=== PATIENT | female | born 1950 | race Caucasian/White ===

== ENCOUNTER 2022-02-01 12:00 | Day surgery (SDC) | payer MEDICARE, SELFPAY ==
[2022-02-01] MEDS: Tropicam./Phenyleph. (1/2.5%) 5 ML BTL OS ×3 (12:35→12:47)
--- NOTE | 2022-02-01 12:35 | W.ANESPRE ---
General Info Date of Service Date Performed: 02/01/22 Height: 5 ft 3 in Weight: 165.561 kg Body Mass Index (BMI): 64.6 Surgical Procedure: Operation Date: 02/01/22 15:40 Proposed Procedure Side Surgeon p Cataract Extraction with IOL Implant w/Glaucoma Stent & Goniotomy Left Chalo Rankin MD Meds Allergies and Home Medications Allergies Allergy/AdvReac Type Severity Reaction Status Date / Time adhesive Allergy Severe Skin Rash Unverified 02/01/22 12:27 cefotaxime [From Claforan] Allergy Severe Tongue Unverified 02/01/22 12:33 swelling penicillin G Allergy Severe tongue Unverified 02/01/22 12:33 [From Bicillin L-A] swelling Home Medication Medication Instructions Recorded ascorbic acid (vitamin C) 500 mg 500 mg PO DAILY 01/28/22 tablet (Vitamin C) cyanocobalamin (vitamin B-12) 1,000 mcg PO DAILY 01/28/22 1,000 mcg tablet cyclobenzaprine 10 mg tablet 10 mg PO TID PRN 01/28/22 duloxetine 60 mg capsule,delayed 60 mg PO DAILY 01/28/22 release gabapentin 600 mg tablet 600 mg PO TID 01/28/22 ibuprofen 600 mg tablet 600 mg PO BID PRN 01/28/22 lisinopril 10 mg tablet 10 mg PO DAILY 01/28/22 oxybutynin chloride 15 mg 15 mg PO DAILY 01/28/22 tablet,extended release 24 hr spironolactone 25 mg tablet 25 mg PO DAILY 01/28/22 latanoprost 0.005 % eye drops 1 drp ophthalmic (eye) HS 01/29/22 Current Visit Medications: Current Medications Generic Name Dose Route Start Last Admin Trade Name Freq PRN Reason Stop Dose Admin Acetaminophen 1,000 mg 02/01/22 06:00 Acetaminophen 500 Mg Tab PO Q4H PRN PRN Miscellaneous Medication 0 ml 02/01/22 06:00 Prednisolone 1%, Moxifloxacin 0.5%, Nepafenac 0.1% 5ml Btl OS DIRECTED [facility] Miscellaneous Medication 0 ml 02/01/22 06:00 Tropicam./Phenyleph. (1/2.5%) 5 Ml Btl OS DIRECTED TABBY Tetracaine HCl 0 ml 02/01/22 06:00 Tetracaine 0.5% 4 Ml Btl OS DIRECTED [facility] PFS Active Problems Active Problems: Problem Status Onset Code Primary open angle glaucoma (POAG) of left eye, mild stage H40.1121 Posterior subcapsular age-related cataract of left eye H25.042 Nuclear sclerotic cataract of left eye H25.12 Cortical cataract of left eye H26.9 Medical History Medical History Age-related osteoporosis without current pathological fracture Central stenosis of spinal canal Chronic diarrhea CKD (chronic kidney disease), stage III pt. denies Essential (primary) hypertension Exercise-induced asthma pt. denies this Fibromyalgia HLD (hyperlipidemia) Hx of menorrhagia due to fibroids, treated with lupron depot, then myomectomy Hyperparathyroidism Hyperparathyroidism due to vitamin D deficiency Kidney stone pr. denies Low back pain Lyme disease recurrent Lymphedema MDD (major depressive disorder), single episode Metatarsalgia, right foot Morbid (severe) obesity due to excess calories Non-pressure chronic ulcer of buttock limited to breakdown of skin pt. denies this Normal esophagogastroduodenoscopy (EGD) Osteoarthritis Other chronic pain Other insomnia not due to a substance or known physiological condition Spinal stenosis, lumbar region without neurogenic claudication Unilateral primary osteoarthritis, right hip Urge incontinence Vitamin B12 deficiency pt. denies Medical History Comments:: Pt. states her mother would be very sick coming out of anesthesia but the patietn states she has not Surgical History Surgical History H/O arthroplasty second left toe H/O arthroscopy bilateral History of tonsillectomy and adenoidectomy states tonsills only removed History of total bilateral knee replacement Hx of colonoscopy Status post embolization of uterine artery Status post hysteroscopic myomectomy Tobacco Smoking/Tobacco Use Status: Never Alcohol Alcohol Intake: never Substance Use Substance use: Never Substance use type: does not use Vital Signs and Lab Results Lab Results Blood Type / Crossmatch: No Data to Display Complete Blood Count: No Data to Display Complete Metabolic Panel: No Data to Display Liver Function Panel: No Data to Display Coagulation Panel: No Data to Display Cardiac Panel: No Data to Display Arterial Blood Gas: No Data to Display Venous Blood Gas: No Data to Display Pancreas Panel: No Data to Display Thyroid Panel: No Data to Display Infectious Disease: No Data to Display Blood Cultures: No Data to Display Toxicology Panel: No Data to Display Anesthesia Assessment and Plan Anesthesia History Personal History: No History of Anesthesia Complications Family History: Other Exercise Tolerance Exercise Tolerance: Metabolic Equivalents>4 Pertinent Negatives Pertinent Negatives: No Symptoms of GERD Cardiac & Pulmonary Exam Cardiac Exam: Normal S1/S2 Heart Sounds Pulmonary Exam: Clear Bilateral Breath Sounds Implantable Cardiac Device Does patient have a Pacemaker or an ICD?: No Airway Exam Known Difficult Airway: No Mallampati Class: 4 Mouth Opening: Narrow (< 3cm) Thyromental Distance: Greater than 3 cm Neck Range of Motion: Full ROM Neck Circumference: Normal Teeth Condition: Removable Dentures/Plates Upper ASA Classification ASA Score: ASA 3 Emergency Case?: No NPO Status NPO Status: NPO Clears >2 hours, Solids >8 hours Anesthesia Plan Resuscitation Status: Full Code Anesthesia Technique: MAC Anesthesia Airway Planned: Natural Airway Monitors Used: Standard Monitors
[2022-02-01 12:36] VITALS: BP 145/73; PULSE 91; RESP 20; TEMP 36.7; O2SAT 96
[2022-02-01 12:40] VITALS: BMI 64.6
[2022-02-01] MEDS: Tetracaine 0.5% 4 ML BTL OS (13:09)
[2022-02-01] MEDS: Triamcinolone 40 MG/ML VIAL (13:11)
[2022-02-01] MEDS: Balanced Salt Soln.-PLUS 500 ML BAG (13:11)
[2022-02-01] MEDS: Duovisc Viscoelastic System EACH 1 EACH (13:12)
[2022-02-01] MEDS: Povidone-Iodine Ophth 30 ML BTL (13:13)
[2022-02-01] MEDS: Lidocaine 2% Jelly 6 ML SYR (13:13)
[2022-02-01 13:44] VITALS: BP 105/81; PULSE 84; RESP 16; TEMP 36.7; O2SAT 100
--- NOTE | 2022-02-01 13:48 | W.ANESPOSTOP ---
Postoperative Evaluation Date, Time and Location Date Performed: 02/01/22 Time Performed: 13:48 Patient Location: Day Surgery Unit Vital Signs Most Recent Imported Vital Signs: Most Recent Vital Signs Temp Pulse Resp BP Pulse Ox 36.7 C 91 H 20 145/73 H 96 02/01/22 12:36 02/01/22 12:36 02/01/22 12:36 02/01/22 12:36 02/01/22 12:36 Most Recent Manually Entered Vital Signs: Adult Blood Pressure: 105/81 Heart Rate: 86 Respirations: 12 Oxygen Saturation (%): 98 Temperature (C): 36.3 C Pain Score (0-10 Scale): 0 Pain Score Most Recent Pain Score: Most Recent Pain Score Pain Level 6 02/01/22 12:36 Assessment Mental Status: Awake (Alert & Oriented to Patient Baseline) Airway and Respiratory Function: Patent airway with normal (patient baseline) respiratory exam Cardiovascular Function: Hemodynamically Stable Hydration Status: Adequately Hydrated Nausea & Vomiting: No Nausea or Vomiting Pain: Pt. Denies Any Pain Peripheral Nerve Block: Patient did not receive a nerve block
[2022-02-01 13:49] VITALS: BP 105/81; PULSE 86; RESP 12; TEMPC 36.3; O2SAT 98
--- NOTE | 2022-02-01 13:49 | W.PM.DSUDISC ---
Discharge Plan Disposition Patient Disposition: HOME Condition: Good Discharge Details Attending Provider: Chalo Rankin Primary Care Provider: Theo Morley Home Meds and New Rx's Prescriptions: No Action cyclobenzaprine 10 mg Tablet 10 mg PO TID PRN oxybutynin chloride 15 mg Tablet Extended Release 24hr 15 mg PO DAILY gabapentin 600 mg Tablet 600 mg PO TID cyanocobalamin (vitamin B-12) 1,000 mcg Tablet 1,000 mcg PO DAILY spironolactone 25 mg Tablet 25 mg PO DAILY ascorbic acid (vitamin C) [Vitamin C] 500 mg Tablet 500 mg PO DAILY ibuprofen 600 mg Tablet 600 mg PO BID PRN duloxetine 60 mg Capsule,Delayed Release(Dr/Ec) 60 mg PO DAILY lisinopril 10 mg Tablet 10 mg PO DAILY latanoprost 0.005 % Drops 1 drp ophthalmic (eye) HS Discharge Instructions Stand Alone Forms: Post-op Topical Cataract, Press Ganey (DSU) Discharge Orders Discharge Orders: Discharge Order (Routine); Ordered 02/01/22 Ordered By: Chalo Rankin DS: Diagnosis Discharge Diagnosis (1) Posterior subcapsular age-related cataract of left eye: Status: Resolved (2) Nuclear sclerotic cataract of left eye: Status: Resolved (3) Cortical cataract of left eye: Status: Resolved
--- NOTE | 2022-02-01 13:50 | ROE_ITS ---
Date of service: 02/01/22 Time of Service: 13:50 Operative Note Operative Note DATE OF PROCEDURE: 02/01/22 PRE-OP DIAGNOSIS: Nuclear/cortical/posterior subcapsular cataract, left eye PROCEDURE: 1. Cataract extraction using phacoemulsification with intraocular lens implant, left eye SURGEON: Chalo Rankin ANESTHESIA TYPE: Local By Surgeon and MAC Refer to Anesthesia Record ESTIMATED BLOOD LOSS: 0 PATHOLOGY: none sent COMPLICATIONS: None Patient was transported to: same day Patient's condition: stable Implants: 1. [employer] / [employer] Tecnis [id number] intraocular lens Indications: 1. Progressive decreased vision due to cataract, left eye Procedure Description: CATARACT SURGERY OPERATIVE REPORT PREOPERATIVE DIAGNOSIS: Nuclear/cortical/posterior subcapsular cataract, left eye POSTOPERATIVE DIAGNOSIS: Same OPERATION: 1. Cataract extraction using phacoemulsification with posterior chamber intraocular lens implant, left eye. IOL: IOL Mailing Machine Assistant/Model: [employer] / KRISTOFER Tecnis [id number] IOL Power: + 16.5 diopters IOL Serial Number: [id number] Optic Diameter: 6.0mm Haptic/Overall Diameter: 13.0mm PHACO INFO: Ignacio Directrurion Vision System with OZil and Active Fluidics Cumulative Dispersed Energy (CDE): 10.07 seconds SURGEON: Chalo Rankin MD, WILLIAM ANESTHESIA: Monitored Anesthesia Care (MAC), with local sub-tenon's anesthetic infiltration COMPLICATIONS: None SPECIMENS: None INDICATIONS FOR PROCEDURE: The patient is a 72-year-old lady with history of diminished visual acuity in her left eye secondary to the development of nuclear/cortical/posterior subcapsular cataract. The option of cataract surgery was offered to the patient and she wished to proceed. She has a history of mild stage primary open-angle glaucoma of the left eye, and glaucoma stents are planned at the time of cataract surgery. PROCEDURE: The correct surgical eye was identified and marked as the left eye and the pupil was dilated in the preoperative area using mydriatics and cycloplegics. The dilated pupil size was 6.0 mm. The patient was brought to the operating room where cardiopulmonary monitoring was instituted and surgical time-out was performed, confirming the correct operative eye and IOL power. Topical anesthesia was administered and ophthalmic povidone-iodine 5% was instilled into the conjunctival fornices. Lidocaine gel was applied to the cornea and the tristan-ocular area was prepped with Betadine 10% solution and draped in the usual sterile fashion for intraocular surgery, including an aperture drape. A Tegaderm transparent film dressing was cut in half and used to cover the lashes and lid margins. Care was taken to sequester the lashes and lid margins under the Tegaderm dressing. A lid speculum was placed between the lids of the operative eye and the Ignacio Lux[employer] Revalia operating microscope was maneuvered into position. Laurent scissors were then used to make a conjunctival buttonhole approximately 6mm posterior to the limbus in the inferonasal quadrant. Blunt dissection was carried out to expose bare sclera, and a blunt-tipped sub-tenon?s anesthesia cannula was introduced and passed posteriorly along the globe where non-preserved plain lidocaine was injected into posterior sub-Tenon?s space. A sideport knife was used to make a paracentesis port superior/superiortemporally. Intraocular phenylephrine/lidocaine was injected into the anterior chamber. The anterior chamber was then filled with viscoelastic. A 2.4mm keratome knife was used to create a half-thickness groove at the limbus and then to construct a three-plane near-clear corneal tunnel extending 2.0mm into clear cornea in the temporal position. . A flap was raised on the anterior capsule and capsulorhexis forceps were used to complete a continuous curvilinear capsulorhexis of 5.0 mm. Balanced salt solution was then used to perform cortical cleaving hydrodissection and nuclear hydrodelineation until the lens could be freely rotated within the capsular bag. The lens nucleus was then disassembled and removed within the capsular bag and iris plane using phacoemulsification. Residual cortical material was removed using the 45-degree angled silicone I/A tip with 0.3mm port. The posterior capsule was carefully polished to remove as much residual lens epithelial cells as safely possible. The capsular bag was then inflated and the anterior chamber deepened with viscoelastic. The lens implant described above was inserted into the capsular bag using the KRISTOFER Yuhaaviatam Injector. A Kuglen hook was used to dial the IOL into position. The anterior chamber was then slightly over-filled with viscoelastic. The microsope and the patient's head were tilted into the ideal position for viewing of the anterior chamber angle. Viscoelastic was placed on the cornea followed by a surgical gonionlens, and the anterior chamber angle landmarks were identified. The Glaukos iStent inject handpiece was introduced into the anterior chamber and the insertion sleeve was retracted once the injector was distal to the pupillary margin. The view of the trabecular meshwork was suboptimal. There was constant small amplitude eye movement, which made targeting it difficult. For stent was attempted to be implanted into the trabecular meshwork, but was incompletely embedded. Attempts were made at reaching the introducing the stent on the trocar, but were unsuccessful due to eye movement and poor view from angle hemorrhage. Viscoelastic was used to clear hemorrhage from the angle, and the second stent was attempted to be injected, after much adjusting of the patient's head, microscope angle, and gonial lens, but the second stent failed to implant completely as well. An attempt was made to reload the stent on the trocar, but was unsuccessful due to constant eye movement. The decision was made not to continue attempting the stent. Both stents were viewed within the angle, and removed using the irrigation/aspiration handpiece, ensuring they were not left in the anterior chamber. The microscope and the patients head were returned to the normal coaxial position. Viscoelatic was then removed from the anterior chamber using the I/A handpiece. The lens implant was noted to center nicely within the capsular bag. The incisions were stromally hydrated, and the anterior chamber was reformed using BSS. Then 0.5cc of moxifloxacin 1.0mg/ml were injected into the capsular bag and anterior chamber. The incisions were checked with a Weck spear and found to be secure. Several drops of ophthalmic povidone-iodine 5% were then applied to the eye followed by two drops of Imprimis combination prednisolone/moxifloxacin/nepafenac solution. The drapes were removed and a clear plastic protective eye shield was placed over the eye. The patient was then returned to Same Day Surgery in stable condition.
== END 2022-02-01 14:14 | disposition home or self-care (01) ==
PROVIDERS: PCP Family Medicine; Visit Provider Ophthalmology
PROC: (CPT 66984; principal; 2022-02-01 15:30)
DX: H25.042 Posterior subcapsular polar age-related cataract, left eye (principal); H40.1121 Primary open-angle glaucoma, left eye, mild stage; N18.30 Chronic kidney disease, stage 3 unspecified; E78.5 Hyperlipidemia, unspecified; E66.01 Morbid (severe) obesity due to excess calories; Z68.44 Body mass index [BMI] 60.0-69.9, adult
CPT/HCPCS: 66984; V2632

== ENCOUNTER 2023-05-25 12:18 | Emergency (ER) | payer MEDICARE, SELFPAY ==
[2023-05-25 12:21] VITALS: BP 162/94; PULSE 83; RESP 22; TEMP 36.9; O2SAT 98
--- OUTSIDE RECORDS SUMMARY | 2023-05-25 12:26 | XMS_ITS | Continuity of Care Document ---
Author Name Unknown Organization [facility] Address [address] [place] [address] Care Team Providers Care Bag Printer Name Role Phone Theo Kat DO Primary Care Physician Encounter [id number] [id number] Date(s): 09/21/22 - 09/21/[address] [id number] Encounter Diagnosis OAB (overactive bladder)(Discharge Diagnosis) - 09/21/22 Discharge Disposition: Home or Self Care Attending Physician: Margot Bhatti MD Admitting Physician: Margot Bhatti MD Allergies, Adverse Reactions, Alerts Substance Reaction Severity Status Adhesive Bandage Rash Moderate Active Claforan Tongue swelling Severe Active Bicillin L-A Tongue swelling Severe Active Assessment and Plan Future Appointments Immunizations Given and Recorded Vaccine Date Status Refusal Reason SARS-CoV-2 mRNA (tozinameran 12y+) bival 1 08/19/22 Given influenza virus vaccine, inactivated 06/03/22 Give n SARS-COV-2 (COVID-19) vaccine, unspecifi 05/20/21 Recorded pneumococcal 23-polyvalent vaccine 03/04/17 Record ed tetanus/diphth/pertuss (Tdap) adult/adol 09/21/07 Recorded tetanus-diphth toxoids (Td) adult/adol 03/06/98 Re corded 1Early/Late Reason: Early/Late Reason: Not Late; previous dose wasn't charted Medications acetaminophen 650 mg oral tablet, extended release 1,300 mg = 2 tab, Oral, BID, PRN as needed for pain, 0 Refill(s) Start Date: 06/03/22 Status: Ordered cyclobenzaprine 10 mg oral tablet 10 mg = 1 tab, Oral, TID, PRN as needed for muscle spasm, # 90 tab, 0 Refill(s) Start Date: 06/01/22 Stop Date: 11/10/22 Status: Ordered DULoxetine 60 mg oral delayed release capsule 60 mg = 1 cap, Oral, BID, do not crush or chew, # 180 cap, 0 Refill(s) Start Date: 06/01/22 Stop Date: 11/11/22 Status: Ordered gabapentin 600 mg oral tablet 600 mg = 1 tab, Oral, TID, # 270 tab, 0 Refill(s) Start Date: 06/01/22 Stop Date: 11/10/22 Status: Ordered losartan 25 mg oral tablet 25 mg = 1 tab, Oral, Daily, # 90 tab, 0 Refill(s) Start Date: 06/01/22 Stop Date: 11/11/22 Status: Ordered Lumigan 0.01% ophthalmic solution 1 drops, Eye-Left, every evening, # 7.5 mL, 0 Refill(s) Start Date: 06/01/22 Stop Date: 10/11/22 Status: Ordered oxybutynin 15 mg/24 hr oral tablet, extended release 1 tab, Oral, Daily, # 90 tab, 3 Refill(s), Pharmacy: [email or web address] #[id number] Start Date: 08/27/22 Status: Ordered spironolactone 25 mg oral tablet 25 mg = 1 tab, Oral, Daily, # 90 tab, 0 Refill(s) Start Date: 06/01/22 Stop Date: 11/10/22 Status: Ordered Vitamin B Complex oral tablet 1 tab, Oral, Daily, # 90 tab, 0 Refill(s) Start Date: 08/19/22 Stop Date: 11/17/22 Status: Ordered Vitamin C 500 mg oral tablet 500 mg = 1 tab, Oral, Daily, # 90 tab, 0 Refill(s) Start Date: 06/01/22 Stop Date: 11/11/22 Status: Ordered Problem List Condition Confirmation Course Effective Dates Status Health Status Informant Bilateral sacroiliitis Confirmed Active Diastolic heart failure Confirmed Active Fibromyalgia Confirmed Active Hearing loss Confirmed Active Hyperparathyroidism Confirmed Active Hypertension Confirmed Active Lumbar spondylosis Confirmed Active Lymphedema of both lower extremities Confirmed Active Mixed hyperlipidemia Confirmed Active Obesity Confirmed Active Obstructive sleep apnea Confirmed Active OAB (overactive bladder) Confirmed Active Reactive depression Confirmed Active Procedures Procedure Date Related Diagnosis Body Site Status Replacement of bilateral knee joints 2006 Completed Colonoscopy Completed Tonsillectomy and adenoidectomy Completed Results Orders for Microbiology Reports Name Date Urine Culture 09/21/22 Microbiology Reports TEST:Urine Culture STATUS:Order in Progress BODY SITE: SOURCE:Urine, Clean Catch COLLECTED DATE/TIME:09/21/22 8:49 AM PRELIMINARY REPORT >100,000 cfu/ml Gram Negative Bacilli Presumptive E. coli Identification and susceptibility to follow. Social History Social History Type Response Tobacco Never tobacco user T obacco Use:. Sex Patient Care team information Personnel Name: Theo Kat DO Address: Address: [address] [place] [id number]
--- OUTSIDE RECORDS SUMMARY | 2023-05-25 12:26 | XMS_ITS | Continuity of Care Document ---
Author Name Unknown Organization [facility] Address [address] [place] [address] Care Team Providers Care Paper Counter Name Role Phone Theo Kat DO Primary Care Physician Encounter [facility] NBR [id number] Date(s): 12/13/22 - 12/13/22 [facility] [address] [place], [place] [address] Discharge Disposition: Home Allergies, Adverse Reactions, Alerts Substance Reaction Severity Status Adhesive Bandage Rash Moderate Active Claforan Tongue swelling Severe Active Bicillin L-A Tongue swelling Severe Active Assessment and Plan Future Appointments Future Scheduled Tests Laboratory* CBC w/ Diff 12/03/22 * Ferritin 12/03/22 * Urine Culture 12/13/22 * Urinalysis Dipstick Only 12/13/22 Immunizations Given and Recorded Vaccine Date Status Refusal Reason SARS-CoV-2 mRNA (tofloridanamkellyn 12y+) bival 1 08/19/22 Given influenza virus vaccine, inactivated 06/03/22 Give n influenza, unspecified formulation 2 06/04/21 Aden rded influenza, unspecified formulation 3 06/12/18 Aden rded influenza, unspecified formulation 4 05/18/16 Aden rded influenza, unspecified formulation 5 05/15/14 Aden rded influenza, unspecified formulation 6 05/08/13 Aden rded influenza, unspecified formulation 7 05/20/12 Aden rded influenza, unspecified formulation 8 06/02/11 Aden rded influenza, unspecified formulation 9 05/31/09 Aden rded influenza, unspecified formulation 10 06/22/08 Rec orded SARS-CoV-2 (COVID-19) mRNA BNT-162b2 vax 11 05/20/21 Recorded SARS-COV-2 (COVID-19) vaccine, unspecifi 05/20/21 Recorded pneumococcal 23-polyvalent vaccine 03/04/17 Record ed pneumococcal 23-polyvalent vaccine 12 05/22/98 Rec orded tetanus/diphth/pertuss (Tdap) adult/adol 09/21/07 Recorded tetanus-diphth toxoids (Td) adult/adol 03/06/98 Re corded 1Early/Late Reason: Early/Late Reason: Not Late; previous dose wasn't charted 2Result Comment: Flu (adult) 3Result Comment: MARGE - Flu VACC 6 MONTHS > 4Result Comment: MARGE - Flu VACC 6 MONTHS > 5Result Comment: MARGE - Flu VACC 6 MONTHS > 6Result Comment: MARGE - Flu VACC 6 MONTHS > 7Result Comment: MARGE - Flu VACC 6 MONTHS > 8Result Comment: MARGE - Flu VACC 6 MONTHS > 9Result Comment: MARGE - Flu VACC 6 MONTHS > 10Result Comment: MARGE - Flu VACC 6 MONTHS > 11Result Comment: COVID-19 ([employer]) mRNA,LNP-S,PF 30 mcg/0.3mL dose 12Result Comment: Pneumovax [id number] Medications acetaminophen 650 mg oral tablet, extended release 1,300 mg = 2 tab, Oral, BID, PRN as needed for pain, 0 Refill(s) Start Date: 06/03/22 Status: Ordered cyclobenzaprine 10 mg oral tablet 10 mg = 1 tab, Oral, TID, PRN as needed for muscle spasm, # 90 tab, 0 Refill(s) Start Date: 06/01/22 Stop Date: 11/10/22 Status: Ordered diclofenac 1% topical gel See Instructions, small amount to left elbow Topical twice daily as needed, # 100 g, 0 Refill(s), Pharmacy: [facility] #[id number] Start Date: 12/09/22 Status: Ordered DULoxetine 60 mg oral delayed release capsule 60 mg = 1 cap, Oral, BID, do not crush or chew, # 180 cap, 0 Refill(s) Start Date: 06/01/22 Stop Date: 11/11/22 Status: Ordered furosemide 20 mg oral tablet 10 mg = 0.5 tab, Oral, Daily, prn SOB,, # 5 tab, 0 Refill(s), Pharmacy: [facility] Start Date: 12/03/22 Status: Ordered furosemide 20 mg oral tablet 10 mg = 0.5 tab, Oral, Daily, take for SOB as needed or weight increase more than 5 pounds in 1 days, # 45 tab, 0 Refill(s), Pharmacy: [facility] ([facility] ) Start Date: 12/03/22 Status: Ordered gabapentin 600 mg oral tablet 600 mg = 1 tab, Oral, TID, # 270 tab, 0 Refill(s) Start Date: 06/01/22 Stop Date: 11/10/22 Status: Ordered losartan 25 mg oral tablet See Instructions, TAKE 1 TABLET BY MOUTH ONCE DAILY, # 90 tab, 3 Refill(s), Pharmacy: [facility] ([facility]) Start Date: 12/13/22 Status: Ordered Lumigan 0.01% ophthalmic solution 1 drops, Eye-Left, every evening, # 7.5 mL, 0 Refill(s) Start Date: 06/01/22 Stop Date: 10/11/22 Status: Ordered nystatin 100,000 units/g topical powder 1 piero, Topical, BID, # 60 g, 4 Refill(s), Pharmacy: [facility] ([facility] ) Start Date: 11/18/22 Stop Date: 02/11/24 Status: Ordered oxybutynin 15 mg/24 hr oral tablet, extended release 1 tab, Oral, Daily, # 90 tab, 3 Refill(s), [id number] Start Date: 08/27/22 Status: Ordered spironolactone 25 mg oral tablet 25 mg = 1 tab, Oral, Daily, # 90 tab, 0 Refill(s) Start Date: 06/01/22 Stop Date: 11/10/22 Status: Ordered traMADol 50 mg oral tablet See Instructions, take 1 to 3 tabs by mouth daily if needed for severe pain, # 90 tab, 0 Refill(s) Start Date: 12/03/22 Status: Ordered Vitamin B Complex oral tablet 1 tab, Oral, Daily, # 90 tab, 0 Refill(s) Start Date: 08/19/22 Stop Date: 11/17/22 Status: Ordered Vitamin C 500 mg oral tablet 500 mg = 1 tab, Oral, Daily, # 90 tab, 0 Refill(s) Start Date: 06/01/22 Stop Date: 11/11/22 Status: Ordered Problem List Condition Confirmation Course Effective Dates Status Health Status Informant Age-related osteoporosis 1 Confirmed Active Bilateral sacroiliitis Confirmed Active BMI 40.0-44.9, adult Confirmed Active Chronic diarrhea Confirmed Active Chronic kidney disease stage 3 Confirmed Active Chronic pain Confirmed Active Chronic ulcer of skin 2 Confirmed Active Pre-ulcerative corn or callous Confirmed Active Degenerative disc disease at all levels 3 Confirmed Active Diastolic heart failure Confirmed Active Diverticulitis Confirmed Active Exercise induced asthma Confirmed Active Fibromyalgia Confirmed Active Hammertoe of right foot Confirmed Active Hearing loss Confirmed Active History of recurrent Lyme disease 4 Confirmed Active Hyperlipidemia Confirmed Active Hyperparathyroidism Confirmed Active Hyperparathyroidism due to vitamin D deficiency 5 Confirmed Active Hypertension Confirmed Active Insomnia 6 Confirmed Active Kidney stone Confirmed Active Fissure in skin of foot Confirmed Active Low back pain Confirmed Active Lumbar spondylosis Confirmed Active Lymphedema of both lower extremities Confirmed Active Major depressive disorder, single episode Confirmed Active Menometrorrhagia 7 Confirmed Active Metatarsal bone fracture 8 Confirmed Active Mixed hyperlipidemia Confirmed Active Morbid (severe) obesity due to excess calories Confirmed Active BMI 60.0-69.9, adult Confirmed Active Obesity Confirmed Active Obstructive sleep apnea Confirmed Active OM (onychomycosis) Confirmed Active Osteoarthritis of bilateral knee joints 9 Confirmed Active OAB (overactive bladder) Confirmed Active unilateral primary osteoarthritis, right hip 10 Confirmed Active Reactive depression Confirmed Active Spinal stenosis 11 Confirmed Active spinal stenosis, lumbar region without neurogenic claudication 12 Confirmed Active Ulcer of left lower extremity with fat layer exposed Confirmed Active Urge urinary incontinence Confirmed Active Vitamin B12 deficiency Confirmed Active 1From [facility]: age-related osteoporosis without current pathological fracture 2Previously known as non-pressure chronic ulcer of buttock limited to breakdown of skin From [facility] 3FROM [facility]: degenerative disc disease at all levels 4From [facility]: hx of recurrent lyme disease, dx in 1992 s/p tx w/multiple abx protocis 5Previously known as vitamin d edficiency with secondary hypoparathyroidism in [facility] 6From [facility]: other insomnia not due to a substance or known physiological condition 7FROM [facility]: hx of [id number]-[id number] to fibroids, treated with depot lupron, then Myomectomy 8From [facility]: right foot metarsal fx 10/21 9FROM [facility]: osteoarthritis/DJD both knees, status post bilateral knee replacements in 2006 10From [facility]: unilateral primary osteoarthritis, right hip 11Preiously known as: moderate degenerative central canal stenosis FROM [facility] 12From [facility]: spinal stenosis, lumbar region without neurogenic claudication Procedures Procedure Date Related Diagnosis Body Site Status Colonoscopy 1 06/2017 Completed Procedure on spine 2 06/30/16 Comp leted Arthroplasty of toe 3 04/09/15 Com pleted Endometrial biopsy 4 11/20/07 Comp leted Replacement of bilateral knee joints 5 2006 Completed Endometrial biopsy 6 04/2005 Comp leted Uterine Artery Embolism/ Hysteroscopy 7 2004 Completed HYsteroscopy with partial myomectomy 8 02/2004 Completed EGD - Esophagogastroduodenoscopy 9 06/2000 Completed Arthroscopy 10 1988 Completed Arthroscopy 11 1986 Completed Colonoscopy Completed Dilation and curettage 12 Completed Operative hysteroscopy, uter ine artery embolization 13 Completed Tonsillectomy and adenoidectomy Completed 1FROM [facility]: Colonoscopy, sigmoid diverticulosis (repeat in 10 years) 2FROM [facility]: LES1, L5 to S1, left Dr. Dubois, [facility] 3FROM [facility]: Arthroplasty, second left toe 4FROM [facility]: Endometrial biopsy, benign 5FROM [facility]: Bilateral TKA 6FROM [facility]: Encometrial biopsy, benign 7FROM [facility]: Uterine Artery Embolism/ Hysteroscopy 8FROM [facility]: HYsteroscopy with partial myomectomy 9FROM [facility]: EGD, normal 10FROM [facility]: Arthroscopy (Bilateral) 11FROM [facility]: Arthroscopy (Bilateral) 12FROM [facility]: D+C (numerous) 13FROM [facility]: operative hysteroscopy, uterine artery embolization Social History Social History Type Response Tobacco Never tobacco user T obacco Use:. Sex Patient Care team information Care Team Personnel Name: Theo Kat DO Position: Physician Member Role: Primary Care Physician Address: Address: [address] [place] [id number] Name: Lubna Jordan APRN Position: Physician Member Role: Nurse Practitioner Address: Address: [address] [place] [phone] [place]
--- OUTSIDE RECORDS SUMMARY | 2023-05-25 12:26 | XMS_ITS | Continuity of Care Document ---
Author Name Unknown Organization [facility] Address [address] [place] [address] Care Team Providers Care Switchboard Operator Receptionist Name Role Phone Theo Kat DO Primary Care Physician Encounter [facility] NBR [id number] Date(s): 12/03/22 - 12/03/22 [facility] [address] [place], [place] [address] Encounter Diagnosis BMI 60.0-69.9, adult(Discharge Diagnosis) - 12/03/22 Chronic ulcer of skin(Discharge Diagnosis) - 12/03/22 SOB (shortness of breath)(Discharge Diagnosis) - 12/03/22 Lymphedema of both lower extremities(Discharge Diagnosis) - 12/03/22 Anemia(Discharge Diagnosis) - 12/03/22 Elbow pain, left(Discharge Diagnosis) - 12/03/22 Uses wheelchair(Discharge Diagnosis) - 12/03/22 Sciatica of right side(Discharge Diagnosis) - 12/03/22 Discharge Disposition: Home or Self Care Attending Physician: SHA Chery Allergies, Adverse Reactions, Alerts Substance Reaction Severity Status Adhesive Bandage Rash Moderate Active Claforan Tongue swelling Severe Active Bicillin L-A Tongue swelling Severe Active Assessment and Plan Future Appointments Future Scheduled Tests Laboratory* CBC w/ Diff 12/03/22 * Ferritin 12/03/22 Functional Status 12/03/22 Other exposure to Infectious Disease Non e Immunizations Given and Recorded Vaccine Date Status [...] VACC 6 MONTHS > 11Result Comment: COVID-19 ([employer]) mRNA,LNP-S,PF 30 mcg/0.3mL dose 12Result Comment: Pneumovax [id number] Medications acetaminophen 650 mg oral tablet, extended [...] needed, # 100 g, 0 Refill(s), Pharmacy: [facility] Start Date: 12/03/22 Status: Ordered DULoxetine 60 mg oral delayed release capsule 60 mg = 1 cap, Oral, BID, do not crush or chew, # 180 cap, 0 Refill(s) Start Date: 06/01/22 Stop Date: 11/11/22 Status: Ordered furosemide 20 mg oral tablet 10 mg = 0.5 tab, Oral, Daily, prn SOB,, # 5 tab, 0 Refill(s), Pharmacy: [facility] Start Date: 12/03/22 Status: Ordered furosemide 20 mg oral tablet 10 mg = 0.5 tab, Oral, Daily, take for SOB as needed or weight increase more than 5 pounds in 1 days, # 45 tab, 0 Refill(s), Pharmacy: [facility] ([facility] ) Start Date: 12/03/22 Status: [...] g, 4 Refill(s), Pharmacy: [facility] ([facility] ) Start Date: 11/18/22 Stop Date: 02/11/24 Status: Ordered oxybutynin 15 mg/24 hr oral tablet, extended release 1 tab, Oral, Daily, # 90 tab, 3 Refill(s), Pharmacy: [facility] #[id number] Start Date: 08/27/22 Status: Ordered spironolactone 25 [...] known physiological condition 7FROM [facility]: hx of [id number]-gfs to fibroids, treated with depot lupron, then [...] LES1, L5 to S1, left Dr. Dubois, [facility] 3FROM [facility]: Arthroplasty, second left toe 4FROM [facility]: Endometrial biopsy, benign 5FROM [facility]: Bilateral TKA 6FROM [facility]: Encometrial biopsy, benign 7FROM [facility]: Uterine Artery Embolism/ Hysteroscopy 8FROM [facility]: HYsteroscopy with partial myomectomy 9FROM [facility]: EGD, normal 10FROM [facility]: Arthroscopy (Bilateral) 11FROM [facility]: Arthroscopy (Bilateral) 12FROM [facility]: D+C (numerous) 13FROM [facility]: operative hysteroscopy, uterine artery embolization Vital Signs Most recent to oldest [Reference Range]: 1 Peripheral Pulse Rate [60-100 bpm] 77 bp m (12/03/22 10:55 AM) Blood Pressure [90-140/60-90 mmHg] 134/8 0mmHg (12/03/22 10:55 AM) Weight 168.6 kg (12/03/22 10:55 AM) Weight Measured (lbs) 371.699 lb (12/03/22 10:55 AM) Social History Social History Type Response Tobacco Never tobacco user T obacco Use:. Sex Hospital Discharge Instructions Follow Up Care 11/29/2022 09:59:00 With:SHA Chery Address: [address] [place] [phone] When: only if needed Physician Outpatient Note * SHA Chery: PERFORM Event Display: Office Clinic Note Physician Authored Date: [id number] HERBERTH FLORES :1950 Age:72 years Sex:Female Visit Date:12/03/2022 Primary Care Physician: Theo Kat DO Chief Complaint SOB is bad when patient is doing activity, walking ect. Tennis Elbow? Patient has tubing for compression on legs, feels like turnikit some times. Additional Information Patient has large legs with scaly skin texture on thighs, and 2 wounds on left leonardo. Nothing was sent home for treatment for these wounds. History of Present Illness Patient indicates visit for f/u shortness of breath and ED visit of 11/19/2022. She took Lasix 20 mgx 1 week with benefit and has lost 21 pounds since last PCP visit. ?? Had cataract surgery last week. She is under care of rheumatology Dr Mead for joints and has appointment in early January for Left ??elbow pain. Has had an injection a couple months ago ??but it did not help much. Having sciatic pain since riding in car yesterday. uses topical pain patch prn. No SOB, resting pt with limited ambulation due to body habitus and lymphedema ?? Review of Systems Constitutional:?No??fevers,?No??chills,?No??sweats ?? Respiratory:?No??shortness of breath,?No??cough Cardiovascular:?No??Chest pain,?No??palpitations,?No??syncope ?? José/Lymph:?No??bruising tendency,?No??swollen lymph glands Endocrine:?No??excessive thirst,??No??excessive hunger Musculoskeletal:??Positive for??back pain,??No??neck pain,??Positive for??joint pain,??No??muscle pain,??Positive for??decreased range of motion Integumentary:?No??rash,?No??pruritus,?No??abrasions Neurologic: Alert & oriented X 4 Psychiatric:?No??anxiety,?No??depression Physical Exam Vitals & Measurements HR:??77??(Peripheral)?? BP:??134/80?? SpO2:??99%?? WT:??168.6??kg?? General: Alert and oriented, well nourished,?No??acute distress ?? Lungs:??Clear to auscultation?? Respiration:??Non-Labored Heart:?Normal? rate,?Regular??rhythm,?No??murmur,?No??gallop,?No??edema ?? Musculoskeletal:?Abnormal?? range of motion and strength,?Positive for??tenderness,?Positive for??swelling?? left elbow , hot at joint Skin: Skin is warm, dry and pink,?No??rashes,?No??lesions Neurologic: Awake, alert and oriented X4, CN II-XII intact Psychiatric: Cooperative, appropriate mood and affect Assessment/Plan 1.??BMI 60.0-69.9, adult??Z68.44 continue weight management ?? 2.??Chronic ulcer of skin??L98.499 f/u with vascular ?? 3.??SOB (shortness of breath)??R06.02 resolved, use lasix prn weight increase > 5 pounds in 1 day. Ordered: furosemide 20 mg oral tablet, 10 mg = 0.5 tab, Oral, Daily, prn SOB,, # 5 tab, 0 Refill(s), Pharmacy: [facility] furosemide 20 mg oral tablet, 10 mg = 0.5 tab, Oral, Daily, take for SOB as needed or weight increase more than 5 pounds in 1 days, # 45 tab, 0 Refill(s), Pharmacy: [facility] ([facility] ) ?? 4.??Lymphedema of both lower extremities??I89.0 vascular ?? 5.??Anemia??D64.9 labs pending r/o iron deficiency Ordered: CBC w/ Diff, Blood, Routine, 12/03/22, Once, Lab Collect, Anemia, Order for future visit Ferritin, Blood, Routine, 12/03/22, Once, Lab Collect, Anemia, Order for future visit ?? 6.??Elbow pain, left??M25.522 f/u with skin diver Ordered: XR Elbow Complete 3+ Views Left, 12/03/22 12:15:00 EDT, Routine, Reason: elbow pain heat, TransportMode: Ambulatory, Elbow pain, left, ABN Status: Not Required ?? 7.??Uses wheelchair??Z99.3 ambulate as able for sciatic pain ?? 8.??Sciatica of right side??M54.31 ambulate as able, pain patch prn ? Future Orders CBC w/ Diff, Blood, Routine, 12/03/22, Once, Lab Collect, Anemia, Order for future visit Ferritin, Blood, Routine, 12/03/22, Once, Lab Collect, Anemia, Order for future visit Follow Up Instructions With When Contact Information SHA Chery Only if needed [address] [place] [address] Additional Instructions: Problem List/Past Medical History Ongoing Age-related osteoporosis Bilateral sacroiliitis BMI 40.0-44.9, adult BMI 60.0-69.9, adult Chronic diarrhea Chronic kidney disease stage 3 Chronic pain Chronic ulcer of skin Degenerative disc disease at all levels Diastolic heart failure Diverticulitis Exercise induced asthma Fibromyalgia Fissure in skin of foot Hammertoe of right foot Hearing loss History of recurrent Lyme disease Hyperlipidemia Hyperparathyroidism Hyperparathyroidism due to vitamin D deficiency Hypertension Insomnia Kidney stone Low back pain Lumbar spondylosis Lymphedema of both lower extremities Major depressive disorder, single episode Menometrorrhagia Metatarsal bone fracture Mixed hyperlipidemia Morbid (severe) obesity due to excess calories OAB (overactive bladder) Obesity Obstructive sleep apnea OM (onychomycosis) Osteoarthritis of bilateral knee joints Pre-ulcerative corn or callous Reactive depression Spinal stenosis spinal stenosis, lumbar region without neurogenic claudication Ulcer of left lower extremity with fat layer exposed unilateral primary osteoarthritis, right hip Urge urinary incontinence Vitamin B12 deficiency Historical No qualifying data Procedure/Surgical History ???Colonoscopy (07/2017)???Procedure on spine (07/01/2016)???Arthroplasty of toe (04/10/2015)???Endometrial biopsy (11/21/2007)???Replacement of bilateral knee joints (2006)???Endometrial biopsy (05/2005)???Uterine Artery Embolism/ Hysteroscopy (2004)???HYsteroscopy with partial myomectomy (03/2004)???EGD - Esophagogastroduodenoscopy (07/2000)???Arthroscopy (1989)???Arthroscopy (1987)???Colonoscopy???Dilation and curettage???Operative hysteroscopy, uterine artery embolization???Tonsillectomy and adenoidectomy Medications acetaminophen 650 mg oral tablet, extended release, 1300 mg= 2 tab, Oral, BID, PRN cyclobenzaprine 10 mg oral tablet, 10 mg= 1 tab, Oral, TID, PRN DULoxetine 60 mg oral delayed release capsule, 60 mg= 1 cap, Oral, BID furosemide 20 mg oral tablet, 10 mg= 0.5 tab, Oral, Daily furosemide 20 mg oral tablet, 10 mg= 0.5 tab, Oral, Daily gabapentin 600 mg oral tablet, 600 mg= 1 tab, Oral, TID losartan 25 mg oral tablet, 25 mg= 1 tab, Oral, Daily Lumigan 0.01% ophthalmic solution, 1 drops, Eye-Left, every evening nystatin 100,000 units/g topical powder, 1 piero, Topical, BID, 4 refills oxybutynin 15 mg/24 hr oral tablet, extended release, 1 tab, Oral, Daily spironolactone 25 mg oral tablet, 25 mg= 1 tab, Oral, Daily traMADol 50 mg oral tablet, See Instructions Vitamin B Complex oral tablet, 1 tab, Oral, Daily Vitamin C 500 mg oral tablet, 500 mg= 1 tab, Oral, Daily Allergies Bicillin L-A??(Tongue swelling) Claforan??(Tongue swelling) Adhesive Bandage??(Rash) Social History Alcohol Never Electronic Cigarette/Vaping Electronic Cigarette Use: Never. Substance Use Never Tobacco Never tobacco user Tobacco Use:. Family History Abdominal aortic aneurysm: Mother. Alcohol abuse: Father and Brother. Cancer: Father and Sister. Cancer: Sister. Dementia: Negative: Sister. Heart attack: Mother. Heart disease: Mother. Hypertension: Mother. Lung cancer: Father and Sister. Suicide: Brother. Family Member(s): ?? FATHER, at age: Unknown. Cause of : Family Member(s): ?? MOTHER, at age: Unknown. Cause of : Family Member(s): ?? BROTHER, at age: 30 Years. Cause of : suicide Family Member(s): ?? SISTER, at age: Unknown. Cause of : Immunizations Vaccine Date Status SARS-CoV-2 mRNA (lorena 12y+) bival 08/19/2022 Given Comments : Early/Late Reason: Not Late; previous dose wasn't charted influenza virus vaccine, inactivated 06/03/2022 Given influenza, unspecified formulation 06/04/2021 Recorded Comments : Flu (adult) SARS-CoV-2 (COVID-19) mRNA BNT-162b2 vax 05/20/2021 Recorded Comments : COVID-19 (Pfizer) mRNA,LNP-S,PF 30 mcg/0.3mL dose SARS-COV-2 (COVID-19) vaccine, unspecifi 05/20/2021 Recorded influenza, unspecified formulation 06/12/2018 Recorded Comments : [facility] - Flu VACC 6 MONTHS > pneumococcal 23-polyvalent vaccine 03/04/2017 Recorded influenza, unspecified formulation 05/18/2016 Recorded Comments : MARGE - Flu VACC 6 MONTHS > influenza, unspecified formulation 05/15/2014 Recorded Comments : MARGE - Flu VACC 6 MONTHS > influenza, unspecified formulation 05/08/2013 Recorded Comments : MARGE - Flu VACC 6 MONTHS > influenza, unspecified formulation 05/20/2012 Recorded Comments : MARGE - Flu VACC 6 MONTHS > influenza, unspecified formulation 06/02/2011 Recorded Comments : MARGE - Flu VACC 6 MONTHS > influenza, unspecified formulation 05/31/2009 Recorded Comments : MARGE - Flu VACC 6 MONTHS > influenza, unspecified formulation 06/22/2008 Recorded Comments : MARGE - Flu VACC 6 MONTHS > tetanus/diphth/pertuss (Tdap) adult/adol 09/21/2007 Recorded pneumococcal 23-polyvalent vaccine 05/22/1998 Recorded Comments : Pneumovax [id number] tetanus-diphth toxoids (Td) adult/adol 03/06/1998 Recorded Electronically Signed on 12/03/22 12:28 PM SHA Chery Patient Care team information Care Team Personnel Name: Theo Kat DO Position: Physician Member Role: Primary Care Physician Address: Address: [address] [place] [phone] Name: Lubna Jordan APRN Position: Physician Member Role: Nurse Practitioner Address: Address: [address] [place] [phone]
--- OUTSIDE RECORDS SUMMARY | 2023-05-25 12:26 | XMS_ITS | Continuity of Care Document ---
Author Name Unknown Organization [facility] Ambulatory Clinics Address [address] [place] [address] Encounter [facility] NBR [id number] Date(s): 06/03/22 - 06/03/22 [facility] Ambulatory Clinics [address] [place], [place] [address] Encounter Diagnosis Pre-op exam(Discharge Diagnosis) - 06/03/22 Encounter for immunization(Discharge Diagnosis) - 06/03/22 Stage 3 chronic kidney disease(Discharge Diagnosis) - 06/03/22 Discharge Disposition: Home or Self Care Attending Physician: Brianda Oglesby APRN Allergies, Adverse Reactions, Alerts Substance Reaction Severity Status Adhesive Bandage Unknown Active Claforan Unknown Active Bicillin L-A Unknown Active Assessment and Plan Future Appointments Functional Status 06/03/22 Living Environment Home Environment No qualifying data available Lives In Apartment Lives With Alone Living Situation Other: lives in [place] or housing Prior Accessibility Options Bathroom mod ifications Other exposure to Infectious Disease Non e Immunizations Given and Recorded Vaccine Date Status Refusal Reason influenza virus vaccine, inactivated 06/03/22 Give n SARS-COV-2 (COVID-19) vaccine, unspecifi 05/20/21 Recorded Medications acetaminophen 650 mg oral tablet, extended release 1,300 mg = 2 tab, Oral, BID, PRN as needed for pain, 0 Refill(s) Start Date: 06/03/22 Status: Ordered cyanocobalamin 1000 mcg oral tablet 1,000 mcg = 1 tab, Oral, Daily, # 90 tab, 0 Refill(s) Start Date: 06/01/22 Status: Ordered cyclobenzaprine 10 mg oral tablet 10 mg = 1 tab, Oral, TID, PRN as needed for muscle spasm, # 30 tab, 0 Refill(s) Start Date: 06/01/22 Status: Ordered DULoxetine 60 mg oral delayed release capsule 60 mg = 1 cap, Oral, Daily, do not crush or chew, # 90 cap, 0 Refill(s) Start Date: 06/01/22 Status: Ordered gabapentin 600 mg oral tablet 600 mg = 1 tab, Oral, TID, # 90 tab, 0 Refill(s) Start Date: 06/01/22 Status: Ordered losartan 25 mg oral tablet 25 mg = 1 tab, Oral, Daily, # 90 tab, 0 Refill(s) Start Date: 06/01/22 Status: Ordered Lumigan 0.01% ophthalmic solution 0 Refill(s) Start Date: 06/01/22 Status: Ordered oxybutynin 15 mg/24 hr oral tablet, extended release 15 mg = 1 tab, Oral, Daily, # 30 tab, 0 Refill(s) Start Date: 06/01/22 Status: Ordered spironolactone 25 mg oral tablet 25 mg = 1 tab, Oral, BID, # 60 tab, 0 Refill(s) Start Date: 06/01/22 Status: Ordered Vitamin C 500 mg oral tablet 500 mg = 1 tab, Oral, Daily, # 90 tab, 0 Refill(s) Start Date: 06/01/22 Status: Ordered Problem List Condition Confirmation Course Effective Dates Status Health St atus Informant Diastolic heart failure Confirmed Active Fibromyalgia Confirmed Active Hearing loss Confirmed Active Hypertension Confirmed Active Lumbar spondylosis Confirmed Active Obesity Confirmed Active Obstructive sleep apnea Confirmed Active OAB (overactive bladder) Confirmed Active Reactive depression Confirmed Active Procedures Procedure Date Related Diagnosis Body Site Status Colonoscopy Completed Tonsillectomy and adenoidectomy Completed Vital Signs Most recent to oldest [Reference Range]: 1 Temperature Tympanic [36.6-37.9 Deg C] 3 6.4 Deg C *LOW* (06/03/22 8:33 AM) Peripheral Pulse Rate [60-100 bpm] 65 bp m (06/03/22 8:33 AM) Blood Pressure [90-140/60-90 mmHg] 142/8 5mmHg *HI* (06/03/22 8:33 AM) Weight 163.2 kg (06/03/22 8:33 AM) Weight Measured (lbs) 359.794 lb (06/03/22 8:33 AM) Social History Social History Type Response Tobacco Never tobacco user T obacco Use:. Sex Hospital Discharge Instructions Follow Up Care 05/26/2022 16:55:29 With:Follow up with specialist Address: When:2 to 4 weeks Comments:We have sent a referral to [facility] nephrology. Expect a phone call from their office in 1-2 weeks.
--- OUTSIDE RECORDS SUMMARY | 2023-05-25 12:26 | XMS_ITS | Continuity of Care Document ---
Author Name Unknown Organization [facility] Ambulatory Clinics Address [address] [place] [address] Care Team Providers Care Peanut Grader Name Role Phone Theo Kat DO Primary Care Physician Encounter [facility] NBR [id number] Date(s): 11/18/22 - 11/18/22 [facility] Ambulatory Clinics [address] [place], [place] [address] Encounter Diagnosis Pre-op evaluation(Discharge Diagnosis) - 11/18/22 Lymphedema of both lower extremities(Discharge Diagnosis) - 11/18/22 Chronic kidney disease stage 3(Discharge Diagnosis) - 11/18/22 Diastolic heart failure(Discharge Diagnosis) - 11/18/22 Hypertension(Discharge Diagnosis) - 11/18/22 Discharge Disposition: Home or Self Care Attending Physician: Theo Kat DO Allergies, Adverse Reactions, Alerts Substance Reaction Severity Status Adhesive Bandage Rash Moderate Active Claforan Tongue swelling Severe Active Bicillin L-A Tongue swelling Severe Active Assessment and Plan Future Appointments Functional Status 11/18/22 Other exposure to Infectious Disease Non e Immunizations Given and Recorded Vaccine Date Status Refusal Reason SARS-CoV-2 mRNA (toudayn 12y+) bival 1 08/19/22 Given influenza virus [...] VACC 6 MONTHS > 11Result Comment: COVID-19 ([place]) mRNA,LNP-S,PF 30 mcg/0.3mL dose 12Result Comment: Pneumovax [id number] Medications acetaminophen 650 mg oral tablet, extended [...] BID, # 60 g, 4 Refill(s), Pharmacy: [facility] ([facility] ) Start Date: 11/18/22 Stop Date: 02/11/24 Status: Ordered oxybutynin 15 mg/24 hr oral tablet, extended release 1 tab, Oral, Daily, # 90 tab, 3 Refill(s), Pharmacy: [facility][id number] Start Date: 08/27/22 Status: Ordered spironolactone 25 [...] known physiological condition 7FROM [facility]: hx of [id number]-jlk to fibroids, treated with depot lupron, then [...] 06/2000 Completed Arthroscopy 10 1988 Completed Arthroscopy 1986 Completed Colonoscopy Completed Dilation and curettage 12 Completed Operative hysteroscopy, uter ine artery embolization 13 Completed Tonsillectomy and adenoidectomy Completed 1FROM [facility]: Colonoscopy, sigmoid diverticulosis (repeat in 10 years) 2FROM [facility]W: LES1, L5 to S1, left Dr. Dubois, [facility] 3FROM [facility]W: Arthroplasty, second left toe 4FROM [...] Range]: 1 Peripheral Pulse Rate [60-100 bpm] 80 bp m (11/18/22 11:11 AM) Blood Pressure [90-140/60-90 mmHg] 118/8 4mmHg (11/18/22 11:11 AM) Weight 178.3 kg (11/18/22 11:11 AM) Weight Measured (lbs) 393.084 lb (11/18/22 11:11 AM) Social History Social History Type Response Tobacco Never tobacco user T obacco Use:. Sex Hospital Discharge Instructions Follow Up Care 08/19/2022 16:16:15 With:Theo Kat DO Address: [address] [place] [id number] When:6 Months Physician Outpatient Note * Theo Kat, DO: PERFORM Event Display: Office Clinic Note Physician Authored Date: [id number] HERBERTH FLORES :1950 Age:72 years Sex:Female Visit Date:11/18/2022 Primary Care Physician: Theo Kat DO Chief Complaint preop cataract and fluid retention History of Present Illness ?? Patient is a 72-year-old female who comes in today for preop evaluation. ??She is having??her cataract removed at [facility] on November 24.?? She says overall she is doing okay, but her biggest other issue??is the swelling??in her legs.?? Was taken off the??Lasix due to her??renal function.??Continued on the spironolactone.?? Feels like the swelling??is worse. ??Had an echocardiogram done which showed some diastolic dysfunction.?? Had a referral to vascular at [facility],??but was??unable to attend due to other health issues.?? Would like a referral back to them again. Cardiovascular: Taking her medication as prescribed.?? Blood pressure has been okay at home.?? On the losartan, cough has resolved. Review of Systems See HPI otherwise negative. Physical Exam Vitals & Measurements HR:??80??(Peripheral)?? BP:??118/84?? SpO2:??97%?? WT:??178.3??kg?? General: Alert and oriented, well nourished,?No??acute distress Lungs: Clear to auscultation and percussion,?Non-labored?? respiration Heart:?Normal?? rate,?Regular??rhythm,?No??murmur,?No??gallop,?No??edema Abdomen: Soft, non-tender, non-distended,?Normal?? bowel sounds,?No??masses Musculoskeletal:?Normal?? range of motion and strength,?No??tenderness,?Positive for??swelling. ??Significant lymphedema in her lower extremities. Assessment/Plan 1.??Pre-op evaluation??Z01.818 I do not appreciate any contraindications to the proposed cataract surgery. ?? 2.??Lymphedema of both lower extremities??I89.0 We will recheck her labs.?? We will refer her to vascular for further evaluation and treatment considerations. Ordered: BNP, Blood, Routine, 11/18/22 12:23:00 EDT, by Randolph LUCIO, Lab Collect, Lymphedema of both lower extremities Chronic kidney disease stage 3 Diastolic heart failure Hypertension ?? 3.??Chronic kidney disease stage 3??N18.30 Recheck labs.?? Had been referred to nephrology??for increasing creatinine.?? We will resend that referral also. Ordered: BNP, Blood, Routine, 11/18/22 12:23:00 EDT, by Randolph LUCIO, Lab Collect, Lymphedema of both lower extremities Chronic kidney disease stage 3 Diastolic heart failure Hypertension ?? 4.??Diastolic heart failure??I50.30 We discussed the possibility of a referral to cardiology, but she would like to go see vascular first??and then consider cardiology later. Ordered: BNP, Blood, Routine, 11/18/22 12:23:00 EDT, by Randolph LUCIO, Lab Collect, Lymphedema of both lower extremities Chronic kidney disease stage 3 Diastolic heart failure Hypertension ?? 5.??Hypertension??I10 Blood pressures well controlled. ??We will continue current regimen. Ordered: BNP, Blood, Routine, 11/18/22 12:23:00 EDT, by Randolph LUCIO, Lab Collect, Lymphedema of both lower extremities Chronic kidney disease stage 3 Diastolic heart failure Hypertension ?? Orders: nystatin 100,000 units/g topical powder, 1 piero, Topical, BID, # 60 g, 4 Refill(s), Pharmacy: [facility] ([facility] ) Referral Orders Referral Management, Medical Service: Nephrology, Reason: CKD on diuretics for lymphedema, Start: 11/18/22, Instructions: Please refer to [facility]ph[facility] Referral Management, Medical Service: Vascular Surgery, Reason: Lymphedema both loegs, severe, Start: 11/18/22, Instructions: Please refer to [facility] Vascular Follow Up Instructions With When Contact Information Theo Kat, DO Within 6 Months [address] [place] [address] Additional Instructions: Problem List/Past Medical [...] capsule, 60 mg= 1 cap, Oral, BID gabapentin 600 mg oral tablet, 600 mg= [...] tablet, 25 mg= 1 tab, Oral, Daily Vitamin B Complex oral tablet, 1 tab, [...] 23-polyvalent vaccine 05/22/1998 Recorded Comments : Pneumovax [id number] tetanus-diphth toxoids (Td) adult/adol 03/06/1998 Recorded Electronically Signed on 11/18/22 02:05 PM Theo Kat DO Patient Care team information Care Team Personnel Name: Theo Kat DO Position: Physician Member Role: Primary Care Physician Address: Address: [address] [place] [address] Name: Lubna Jordan APRN Position: Physician Member Role: Nurse Practitioner Address: Address: [address] [place] [address]
--- OUTSIDE RECORDS SUMMARY | 2023-05-25 12:26 | XMS_ITS | Continuity of Care Document ---
Author Name Unknown Organization [facility] Address [address] [place] [address] Care Team Providers Care Therapist Rrt Name Role Phone Theo Kat DO Primary Care Physician [phone] Encounter [facility] NBR [id number] Date(s): 12/03/22 - 12/03/[address] [address] Discharge Disposition: Home Allergies, Adverse Reactions, Alerts Substance Reaction Severity Status Adhesive Bandage Rash Moderate Active Claforan Tongue swelling Severe Active Bicillin L-A Tongue swelling Severe Active Assessment and Plan Future Appointments Future Scheduled Tests Laboratory* CBC w/ Diff 12/03/22 * Ferritin 12/03/22 Immunizations Given and Recorded Vaccine Date Status Refusal Reason SARS-CoV-2 mRNA (lorena 12y+) bival 1 08/19/22 Given influenza virus [...] VACC 6 MONTHS > 11Result Comment: COVID-19 ([employer]) mRNA,LNP-S,PF 30 mcg/0.3mL dose 12Result Comment: Pneumovax [id number] Medications acetaminophen 650 mg oral tablet, extended [...] needed, # 100 g, 0 Refill(s), Pharmacy: [facility] Start Date: 12/03/22 Status: Ordered DULoxetine 60 mg oral delayed release capsule 60 mg = 1 cap, Oral, BID, do not crush or chew, # 180 cap, 0 Refill(s) Start Date: 06/01/22 Stop Date: 11/11/22 Status: Ordered furosemide 20 mg oral tablet 10 mg = 0.5 tab, Oral, Daily, prn SOB,, # 5 tab, 0 Refill(s), Pharmacy: [facility] Start Date: 12/03/22 Status: Ordered furosemide 20 mg oral tablet 10 mg = 0.5 tab, Oral, Daily, take for SOB as needed or weight increase more than 5 pounds in 1 days, # 45 tab, 0 Refill(s), Pharmacy: [facility] ([facility] ) Start Date: 12/03/22 Status: [...] g, 4 Refill(s), Pharmacy: [facility] ([facility] ) Start Date: 11/18/22 Stop Date: 02/11/24 Status: Ordered oxybutynin 15 mg/24 hr oral tablet, extended release 1 tab, Oral, Daily, # 90 tab, 3 Refill(s), Pharmacy: [id number] Start Date: 08/27/22 Status: Ordered spironolactone 25 [...] known physiological condition 7FROM [facility]: hx of [id number]-pwe to fibroids, treated with depot lupron, then [...] L5 to S1, left Dr. Dubois, [facility] 3FROM [facility]: Arthroplasty, second left toe [...] Member Role: Primary Care Physician Address: Address: [address] [place] [phone] [place] Name: Lubna Jordan APRN Position: Physician Member Role: Nurse Practitioner Address: Address: [address] [place] [phone]
--- OUTSIDE RECORDS SUMMARY | 2023-05-25 12:26 | XMS_ITS | Continuity of Care Document ---
Author Name Unknown Organization [facility] Ambulatory Clinics Address [address] [place] [address] Care Team Providers Care High Raw Sugar Boiler Name Role Phone Radha Galo Primary Care Physician Encounter [facility] NBR [id number] Date(s): 02/11/23 - 02/11/23 [facility] Ambulatory Clinics [address] [place], [place] [address] Encounter Diagnosis Lumbar canal stenosis(Discharge Diagnosis) - 02/11/23 Lumbar spondylosis(Discharge Diagnosis) - 02/11/23 Lumbar foraminal stenosis(Discharge Diagnosis) - 02/11/23 Lumbar radicular pain(Discharge Diagnosis) - 02/11/23 Discharge Disposition: Home or Self Care Attending Physician: Rose Armstrong DO Allergies, Adverse Reactions, Alerts Substance Reaction Severity Status Adhesive Bandage Rash Moderate Active Claforan Tongue swelling Severe Active Bicillin L-A Tongue swelling Severe Active Assessment and Plan Future Scheduled Tests Laboratory* CBC w/ Diff 12/03/22 * Ferritin 12/03/22 * Urine Culture 12/13/22 * Urinalysis Dipstick Only 12/13/22 Functional Status 02/11/23 Other exposure to Infectious Disease Non e [...] mRNA,LNP-S,PF 30 mcg/0.3mL dose 12Result Comment: Pneumovax [id number] Medications acetaminophen 650 mg oral tablet, extended [...] needed, # 100 g, 0 Refill(s), Pharmacy: [facility] #[id number] Start Date: 12/09/22 Status: Ordered DULoxetine 60 mg oral delayed release capsule 60 mg = 1 cap, Oral, BID, do not crush or chew, # 180 cap, 0 Refill(s) Start Date: 06/01/22 Stop Date: 11/11/22 Status: Ordered furosemide 20 mg oral tablet 10 mg = 0.5 tab, Oral, Daily, prn SOB,, # 5 tab, 0 Refill(s), Pharmacy: [facility] Start Date: 12/03/22 Status: Ordered furosemide 20 mg oral tablet 10 mg = 0.5 tab, Oral, Daily, take for SOB as needed or weight increase more than 5 pounds in 1 days, # 45 tab, 0 Refill(s), Pharmacy: [facility] ([facility] ) Start Date: 12/03/22 Status: Ordered gabapentin 600 mg oral tablet 600 mg = 1 tab, Oral, TID, # 270 tab, 0 Refill(s) Start Date: 06/01/22 Stop Date: 11/10/22 Status: Ordered losartan 25 mg oral tablet See Instructions, TAKE 1 TABLET BY MOUTH ONCE DAILY, # 90 tab, 3 Refill(s), Pharmacy: [facility] ([facility]) Start Date: 12/13/22 Status: Ordered Lumigan 0.01% ophthalmic solution 1 drops, Eye-Left, every evening, # 7.5 mL, 0 Refill(s) Start Date: 06/01/22 Stop Date: 10/11/22 Status: Ordered nystatin 100,000 units/g topical powder 1 piero, Topical, BID, # 60 g, 4 Refill(s), Pharmacy: [facility] ([facility] ) Start Date: 11/18/22 Stop Date: 02/11/24 Status: Ordered oxybutynin 15 mg/24 hr oral tablet, extended release 1 tab, Oral, Daily, # 90 tab, 3 Refill(s), Pharmacy: [facility] #[id number] Start Date: 08/27/22 Status: Ordered spironolactone 25 [...] known physiological condition 7FROM [facility]: hx of [id number]-bextiaqrobw-hlf to fibroids, treated with depot lupron, then [...] LES1, L5 to S1, left Dr. Dubois, [facility] 3FROM [facility]W: Arthroplasty, second left toe 4FROM [...] recent to oldest [Reference Range]: 1 Temperature Temporal Artery [36-38 Deg C ] 35.9 Deg C *LOW* (02/11/23 9:12 AM) Peripheral Pulse Rate [60-100 bpm] 74 bp m (02/11/23 9:12 AM) Blood Pressure [90-140/60-90 mmHg] 124/7 2mmHg (02/11/23 9:12 AM) Weight 156.1 kg (02/11/23 9:12 AM) Weight Measured (lbs) 344.141 lb (02/11/23 9:12 AM) [place] Body Weight Calculated 52.4 kg (02/11/23 9:12 AM) Height 160.02 cm (02/11/23 9:12 AM) Height/Length Measured (inches) 63 inch (02/11/23 9:12 AM) BSA Measured 2.63 m2 (02/11/23 9:12 AM) Body Mass Index 60.96 kg/m2 (02/11/23 9:12 AM) Social History Social History Type Response Tobacco Never tobacco user T obacco Use:. Sex Patient Care team information Care Team Personnel Name: Radha Galo Position: No Access Member Role: Primary Care Physician Address: Address: [address] [place], [place] [address] Name: Lubna Jordan APRN Position: Physician Member Role: Nurse Practitioner Address: Address: [address] [place] [phone]
--- OUTSIDE RECORDS SUMMARY | 2023-05-25 12:26 | XMS_ITS | Continuity of Care Document ---
Author Name Unknown Organization [facility] Ambulatory Clinics Address [address] [place] [address] Care Team Providers Care Internal Revenue Service Agent Name Role Phone Theo Kat DO Primary Care Physician Encounter [facility] NBR [id number] Date(s): 12/18/22 - 12/18/22 [facility] Ambulatory Clinics [address] [place], [place] [address] Discharge Disposition: Home Allergies, Adverse Reactions, Alerts Substance Reaction Severity Status Adhesive Bandage Rash Moderate Active Claforan Tongue swelling Severe Active Bicillin L-A Tongue swelling Severe Active Assessment and Plan Future Appointments Future Scheduled Tests Laboratory* CBC w/ Diff 12/03/22 * Ferritin 12/03/22 * Urine Culture 12/13/22 * Urinalysis Dipstick Only 12/13/22 Immunizations Given and Recorded Vaccine Date Status Refusal Reason SARS-CoV-2 mRNA (tofloirdanamkellyn 12y+) bival 1 08/19/22 Given influenza virus [...] mRNA,LNP-S,PF 30 mcg/0.3mL dose 12Result Comment: Pneumovax [id number] Medications acetaminophen 650 mg oral tablet, extended [...] needed, # 100 g, 0 Refill(s), Pharmacy: [facility] #[id number] Start Date: 12/09/22 Status: Ordered DULoxetine 60 mg oral delayed release capsule 60 mg = 1 cap, Oral, BID, do not crush or chew, # 180 cap, 0 Refill(s) Start Date: 06/01/22 Stop Date: 11/11/22 Status: Ordered furosemide 20 mg oral tablet 10 mg = 0.5 tab, Oral, Daily, prn SOB,, # 5 tab, 0 Refill(s), Pharmacy: [facility] Start Date: 12/03/22 Status: Ordered furosemide 20 mg oral tablet 10 mg = 0.5 tab, Oral, Daily, take for SOB as needed or weight increase more than 5 pounds in 1 days, # 45 tab, 0 Refill(s), Pharmacy: [facility] ([facility] ) Start Date: 12/03/22 Status: Ordered gabapentin 600 mg oral tablet 600 mg = 1 tab, Oral, TID, # 270 tab, 0 Refill(s) Start Date: 06/01/22 Stop Date: 11/10/22 Status: Ordered losartan 25 mg oral tablet See Instructions, TAKE 1 TABLET BY MOUTH ONCE DAILY, # 90 tab, 3 Refill(s), Pharmacy: [facility] ([facility]) Start Date: 12/13/22 Status: Ordered Lumigan 0.01% ophthalmic solution 1 drops, Eye-Left, every evening, # 7.5 mL, 0 Refill(s) Start Date: 06/01/22 Stop Date: 10/11/22 Status: Ordered nystatin 100,000 units/g topical powder 1 piero, Topical, BID, # 60 g, 4 Refill(s), Pharmacy: [facility] ([facility] ) Start Date: 11/18/22 Stop Date: 02/11/24 Status: Ordered oxybutynin 15 mg/24 hr oral tablet, extended release 1 tab, Oral, Daily, # 90 tab, 3 Refill(s), [id number] Start Date: 08/27/22 Status: Ordered spironolactone 25 [...] known physiological condition 7FROM [facility]: hx of tezm-lioujaytiuc-ouc to fibroids, treated with depot lupron, then [...] LES1, L5 to S1, left Dr. Dubois, [facility] 3FROM [facility]: Arthroplasty, second left toe [...] Member Role: Primary Care Physician Address: Address: [address] [place] [phone] Name: Lubna Jordan APRN Position: Physician Member Role: Nurse Practitioner Address: Address: [address] [place] [phone] [place]
--- OUTSIDE RECORDS SUMMARY | 2023-05-25 12:27 | XMS_ITS | Continuity of Care Document ---
Author Name Unknown Organization [facility] Ambulatory Clinics Address [address] [place] [address] Care Team Providers Care Mattress Renovator Name Role Phone Theo Kat DO Primary Care Physician Encounter [facility] NBR [id number] Date(s): 09/21/22 - 09/21/22 [facility] Ambulatory Clinics [address] [place], [place] [address] Encounter Diagnosis OAB (overactive bladder)(Discharge Diagnosis) - 09/21/22 Nocturia(Discharge Diagnosis) - 09/21/22 Asymptomatic bacteriuria(Discharge Diagnosis) - 09/21/22 Discharge Disposition: Home or Self Care Attending Physician: Margot Bhatti MD Allergies, Adverse Reactions, Alerts Substance Reaction Severity Status Adhesive Bandage Rash Moderate Active Claforan Tongue swelling Severe Active Bicillin L-A Tongue swelling Severe Active Assessment and Plan Future Appointments Functional Status 09/21/22 Living Environment Home Environment No qualifying data available Recent Travel History No recent travel Other exposure to Infectious Disease Non e Immunizations Given and Recorded Vaccine Date Status Refusal Reason SARS-CoV-2 mRNA (tofloridanameran 12y+) bival 1 08/19/22 Given influenza virus [...] Daily, # 90 tab, 3 Refill(s), Pharmacy: [facility] #[id number] Start Date: 08/27/22 Status: Ordered spironolactone 25 [...] Completed Colonoscopy Completed Tonsillectomy and adenoidectomy Completed Vital Signs Most recent to oldest [Reference Range]: 1 Peripheral Pulse Rate [60-100 bpm] 79 bp m (09/21/22 8:36 AM) Blood Pressure [90-140/60-90 mmHg] 152/7 0mmHg *HI* (09/21/22 8:36 AM) Weight 158.76 kg (09/21/22 8:36 AM) Weight Measured (lbs) 350.005 lb (09/21/22 8:36 AM) Social History Social History Type Response Tobacco Never tobacco user T obacco Use:. Sex Physician Outpatient Note * Margot Bhatti MD: PERFORM Event Display: Office Clinic Note Physician Authored Date: [id number] HERBERTH FLORES :1950 Age:72 years Sex:Female Visit Date:09/21/2022 Primary Care Physician: Theo Kat, DO History of Present Illness Mrs. Flores is a very pleasant??72 year-old lady who presents for??evaluation of nocturia and urinary urgency with UUI.?She has been seen by our office years ago for similar issues.?? (Last visit 05/01/18).?She continues to have nocturia x??3-4.?? Each time she voids, she notes that the voided volumes are high.?She??does not find her sleep restorative, and is aware that she would benefit from another consultation with sleep apnea.?? She has seen Dr. Enriquez years ago, and was given a diagnosis of sleep apnea at that time.? She would like to return to him.? She has urinary urgency both day and night.? She has UUI daily.?? She does not leak with coughing or laughing. She did a voiding diary back in 2018 which did show possible OAB.? She has never had trouble with UTI, though she was found to have asymptomatic bacteriuria when admitted for fluid overload in March 2022. She voids about every 2-3 h while awake.? She is managing the incontinence with 5-6 large padsdaily. She has no history of gross hematuria or urolithiasis. She is a [employer].?? She currently manages her bladder with Ditropan XL 10 mg daily, and finds it somewhat??helpful.?? Physical Exam Vitals & Measurements HR:??79??(Peripheral)?? BP:??152/70?? SpO2:??98%?? WT:??158.76??kg?? GENERAL APPEARANCE:??Morbidly obese lady, alert and oriented in NAD; appropriate with good affect.??.?? NEURO:??grossly intact.?? HEENT:??NCAT; EOMI.?? NECK:??supple.?? CHEST:??symmetric excursions.?? ABDOMEN:??soft, NT, ND.?? MUSCULOSKELETAL:??good gait and station.?? EXTREMITIES:??no c/c/e??.?? BACK/SPINE:??no CVAT.?? :??deferred. Assessment/Plan 1.??OAB (overactive bladder)??N32.81 Ordered: Urine Culture, Urine, Routine collect, RT - Routine, 09/21/22 8:48:00 EST, Once, Nurse collect, OAB(overactive bladder), Margot Bhatti MD ?? ASSESMENT:?? Ms. Flores is a pleasant??72 year-old lady with bothersome nocturia, urinary urgency, and urge urinary incontinence. Her voiding diary was suggestive of OAB. She also has known sleep apnea which she is not currently treating. This may also be contributing to nocturia. PLAN: 1. She will be given a trial of Myrbetriq 50 mg, and will hold Ditropan during the trial. 2. She will be given a consultation with Dr. Enriquez of Sleep Medicine. 3. Follow up will be determined based on her response to the medication. Problem List/Past Medical History Ongoing Bilateral sacroiliitis Diastolic heart failure Fibromyalgia Hearing loss Hyperparathyroidism Hypertension Lumbar spondylosis Lymphedema of both lower extremities Mixed hyperlipidemia OAB (overactive bladder) Obesity Obstructive sleep apnea Reactive depression Historical No qualifying data Procedure/Surgical History ???Replacement of bilateral knee joints (2006)???Colonoscopy???Tonsillectomy and adenoidectomy Medications acetaminophen 650 mg oral [...] ophthalmic solution, 1 drops, Eye-Left, every evening oxybutynin 15 mg/24 hr oral tablet, extended release, 1 tab, Oral, Daily spironolactone 25 mg oral tablet, 25 mg= 1 tab, Oral, Daily Vitamin B Complex oral tablet, 1 tab, Oral, Daily Vitamin C 500 mg oral tablet, 500 mg= 1 tab, Oral, Daily Allergies Bicillin L-A??(Tongue swelling) Claforan??(Tongue swelling) Adhesive Bandage??(Rash) Social History Alcohol Never Electronic Cigarette/Vaping Electronic Cigarette Use: Never. Tobacco Never tobacco user Tobacco Use:. Family History Cancer: Father and Sister. Dementia: Negative: Sister. Heart attack: Mother. Hypertension: Mother. Family Member(s): ?? FATHER, at age: Unknown. Cause of : Immunizations Vaccine Date Status SARS-CoV-2 mRNA (lorena 12y+) bival 08/19/2022 Given Comments : Early/Late Reason: Not Late; previous dose wasn't charted influenza virus vaccine, inactivated 06/03/2022 Given SARS-COV-2 (COVID-19) vaccine, unspecifi 05/20/2021 Recorded pneumococcal 23-polyvalent vaccine 03/04/2017 Recorded tetanus/diphth/pertuss (Tdap) adult/adol 09/21/2007 Recorded tetanus-diphth toxoids (Td) adult/adol 03/06/1998 Recorded Electronically Signed on 09/21/22 09:08 AM Margot Bhatti MD Patient Care team information Personnel Name: Theo Kat DO Address: Address: [address] [place] [id number]
--- OUTSIDE RECORDS SUMMARY | 2023-05-25 12:27 | XMS_ITS | Continuity of Care Document ---
Author Name Unknown Organization [facility] Address [address] [place] [address] Care Team Providers Care Concrete Foreman Name Role Phone Theo Kat DO Primary Care Physician Encounter [facility] NBR [id number] Date(s): 11/18/22 - 11/18/[address] [address] Discharge Disposition: Home or Self Care Attending Physician: Theo Kat DO Admitting Physician: Theo Kat DO Referring Physician: Theo Kat DO Allergies, Adverse Reactions, [...] VACC 6 MONTHS > 11Result Comment: COVID-19 (Resonergy) mRNA,LNP-S,PF 30 mcg/0.3mL dose 12Result Comment: Pneumovax [id number] Medications acetaminophen 650 mg oral tablet, extended [...] g, 4 Refill(s), Pharmacy: [facility] ([facility] ) Start Date: 11/18/22 Stop Date: 02/11/24 Status: Ordered oxybutynin 15 mg/24 hr oral tablet, extended release 1 tab, Oral, Daily, # 90 tab, 3 Refill(s), Pharmacy: [facility] #[id number] Start Date: 08/27/22 Status: Ordered spironolactone 25 [...] known physiological condition 7FROM [facility]W: hx of [id number] to fibroids, treated with depot lupron, then [...] LES1, L5 to S1, left Dr. Dubois, [facility] 3FROM [facility]W: Arthroplasty, second left toe 4FROM ECW: Endometrial biopsy, benign 5FROM ECW: Bilateral TKA 6FROM ECW: Encometrial biopsy, benign 7FROM ECW: Uterine Artery Embolism/ Hysteroscopy 8FROM ECW: HYsteroscopy with partial myomectomy 9FROM ECW: EGD, normal 10FROM ECW: Arthroscopy (Bilateral) 11FROM ECW: Arthroscopy (Bilateral) 12FROM ECW: D+C (numerous) 13FROM ECW: operative hysteroscopy, uterine artery embolization Results Laboratory List Name Date BNP 11/18/22 Basic Metabolic Panel (BMP) 11/18/22 Most recent to oldest [Reference Range]: 1 BUN [8-26 mg/dL] 29 mg/dL *HI* (11/18/22 12: PM) Glucose Level [74-106 mg/dL] 94 mg/dL (11/18/22 12: PM) Potassium Level [3.5-5.1 mmol/L] 4.6 mmo l/L (11/18/22 12: PM) Osmolality [275-295 mOsm/kg] 279 mOsm/kg (11/18/22 12: PM) Sodium Level [134-143 mmol/L] 137 mmol/L (11/18/22 12: PM) Calcium Level [8.9-10.3 mg/dL] 9.3 mg/dL (11/18/22 12: PM) CO2 [22-32 mmol/L] 24 mmol/L (11/18/22 12: PM) BNP [<=100 pg/mL] 260 pg/mL *HI* (11/18/22 12: PM) Chloride Level [98-111 mmol/L] 104 mmol/ L (11/18/22 12: PM) BUN/Creat Ratio [8.0-20.0] 24.8 *HI* (11/18/22 12: PM) Creatinine Level [0.44-1.00 mg/dL] 1.17 mg/dL *HI* (11/18/22 12: PM) Anion Gap [3.0-12.0] 9.0 (11/18/22 12: PM) eGFR CKD-EPI [>=60 mL/min/1.73 m2] 50 mL /min/1.73 m2 *LOW* (11/18/22 12: PM) Social History Social History Type Response Tobacco Never tobacco user T obacco Use:. Sex Patient Care team information Care Team Personnel Name: Theo Kat DO Position: Physician Member Role: Primary Care Physician Address: Address: [address] [place] [address] Name: Lubna Jordan APRN Position: Physician Member Role: Nurse Practitioner Address: Address: [address] [place] [address]
--- OUTSIDE RECORDS SUMMARY | 2023-05-25 12:27 | XMS_ITS | Continuity of Care Document ---
Author Name Unknown Organization [facility] Ambulatory Clinics Address [address] [place] [address] Care Team Providers Care Electric Screw Driver Operator Name Role Phone Theo Kat DO Primary Care Physician Encounter [facility] NBR [id number] Date(s): 08/19/22 - 08/19/22 [facility] Ambulatory Clinics [address] [place], [place] [address] Encounter Diagnosis Bilateral sacroiliitis(Discharge Diagnosis) - 08/19/22 Fibromyalgia(Discharge Diagnosis) - 08/19/22 Encounter for immunization(Discharge Diagnosis) - 08/19/22 Hypertension(Discharge Diagnosis) - 08/19/22 Obstructive sleep apnea(Discharge Diagnosis) - 08/19/22 Discharge Disposition: Home or Self Care Attending Physician: Theo Kat DO Allergies, Adverse Reactions, Alerts Substance Reaction Severity Status Adhesive Bandage Rash Moderate Active Claforan Tongue swelling Severe Active Bicillin L-A Tongue swelling Severe Active Assessment and Plan Future Appointments Functional Status 08/19/22 Other exposure to Infectious Disease Non e Immunizations Given and Recorded Vaccine Date Status Refusal Reason SARS-CoV-2 mRNA (hardikn 12y+) bival 1 08/19/22 Given influenza virus [...] Date: 06/01/22 Stop Date: 11/11/22 Status: Ordered predniSONE 10 mg oral tablet See Instructions, 3 tabs daily for 5 days then 2 tabs for 5 days then 1 tab for 5 days with food, #30 tab, 0 Refill(s), Pharmacy: [facility] Start Date: 08/19/22 Status: Ordered spironolactone 25 mg oral tablet [...] Range]: 1 Peripheral Pulse Rate [60-100 bpm] 70 bp m (08/19/22 2:29 PM) Blood Pressure [90-140/60-90 mmHg] 128/7 0mmHg (08/19/22 2:29 PM) Weight 159 kg (08/19/22 2:29 PM) Weight Measured (lbs) 350.535 lb (08/19/22 2:29 PM) Social History Social History Type Response Tobacco Never tobacco user T obacco Use:. Sex Hospital Discharge Instructions Follow Up Care 06/03/2022 10:21:03 With:Theo Kat DO Address: [address] [place] [phone] When:6 Months Physician Outpatient Note * Theo Kat DO: PERFORM Event Display: Office Clinic Note Physician Authored Date: [id number] HERBERTH FLORES :1950 Age:72 years Sex:Female Visit Date:08/19/2022 Primary Care Physician: Theo Kat DO Chief Complaint Follow up ... Right leg pain, groin pain right side.... issues right side... upper arm pain ... Any new medicstions today... to go to [facility].. History of Present Illness Patient is a 72-year-old female who comes in today for follow-up.?? She says overall things are going okay.?? Had a reasonable holiday. Musculoskeletal: Continues to struggle with her chronic pain from fibromyalgia as well as chronic bursitis.?? Has been using Tylenol.?? Has been staying away from the ibuprofen due to her increased renal function.?? Has had some benefit from tramadol and prednisone in the past.Currently on gabapentin and duloxetine which seem to help some. Pulmonary: Has a history of sleep apnea.?? Her machine is old.?? Has not used it in some time. Review of Systems See HPI otherwise negative. Physical Exam Vitals & Measurements HR:??70??(Peripheral)?? BP:??128/70?? SpO2:??97%?? WT:??159??kg?? General: Alert and oriented, well nourished,?No??acute distress Lungs: Clear to auscultation and percussion,?Non-labored?? respiration Heart:?Normal?? rate,?Regular??rhythm,?No??murmur,?No??gallop,?No??edema Abdomen: Soft, non-tender, non-distended,?Normal?? bowel sounds,?No??masses Musculoskeletal:?Normal?? range of motion and strength,?No??tenderness,?No??swelling Assessment/Plan 1.??Bilateral sacroiliitis??M46.1 We will try a short course of prednisone. Ordered: predniSONE 10 mg oral tablet, See Instructions, 3 tabs daily for 5 days then 2 tabs for 5 days then1 tab for 5 days with food, # 30 tab, 0 Refill(s), Pharmacy: [facility] ?? 2.??Fibromyalgia??M79.7 Continue current regimen. Ordered: predniSONE 10 mg oral tablet, See Instructions, 3 tabs daily for 5 days then 2 tabs for 5 days then1 tab for 5 days with food, # 30 tab, 0 Refill(s), Pharmacy: [facility] ?? 3.??Encounter for immunization??Z23 Ordered: OncoTree DTS COVID-19 (12y+) Bivalent Booster Vaccine PF, 0.3 mL, IM, Once, First Dose: 08/19/2216:00:00 EST, Stop Date: 08/19/22 16:00:00 EST, Physician Stop, Routine ?? 4.??Hypertension??I10 Blood pressures well controlled.?? We will continue current regimen. ?? 5.??Obstructive sleep apnea??G47.33 She will contact her previously provider and make an appointment to have them reevaluate her for her current machine versus another versus settings etc. ?? Follow Up Instructions With When Contact Information Theo Kat DO Within 6 Months [address] [place] [address] Additional Instructions: Problem List/Past Medical History Ongoing Bilateral sacroiliitis Diastolic heart failure Fibromyalgia Hearing loss Hyperparathyroidism Hypertension Lumbar spondylosis Lymphedema of both lower extremities Mixed hyperlipidemia OAB (overactive bladder) Obesity Obstructive sleep apnea Reactive depression Historical No qualifying data Procedure/Surgical History ???Colonoscopy???Tonsillectomy and adenoidectomy Medications acetaminophen 650 mg oral [...] 15 mg/24 hr oral tablet, extended release, 15 mg= 1 tab, Oral, Daily OncoTree DTS COVID-19 (12y+) Bivalent Booster Vaccine PF, 0.3 mL, IM, Once predniSONE 10 mg oral tablet, See Instructions spironolactone 25 mg oral tablet, 25 mg= [...] Cause of : Immunizations Vaccine Date Status influenza virus vaccine, inactivated 06/03/2022 Given SARS-COV-2 (COVID-19) vaccine, unspecifi 05/20/2021 Recorded pneumococcal 23-polyvalent vaccine 03/04/2017 Recorded tetanus/diphth/pertuss (Tdap) adult/adol 09/21/2007 Recorded tetanus-diphth toxoids (Td) adult/adol 03/06/1998 Recorded Electronically Signed on 08/19/22 03:56 PM Theo Kat DO Patient Care team information Personnel Name: Theo Kat DO Address: Address: [address] [place] [phone]
--- OUTSIDE RECORDS SUMMARY | 2023-05-25 12:27 | XMS_ITS | Continuity of Care Document ---
Author Name Unknown Organization [facility] Address [address] [place] [address] Care Team Providers Care Feeder Switchboard Operator Name Role Phone Theo Kat DO Primary Care Physician Encounter [facility] NBR [id number] Date(s): 12/03/22 - 12/03/[address] [address] Discharge Disposition: Home or Self Care Attending Physician: SHA Chery Admitting Physician: SHA Chery Referring Physician: SHA Chery Allergies, Adverse Reactions, Alerts Substance Reaction Severity Status Adhesive Bandage Rash Moderate Active Claforan Tongue swelling Severe Active Bicillin L-A Tongue swelling Severe Active Assessment and Plan Future Appointments Future Scheduled Tests Laboratory* CBC w/ Diff 12/03/22 * Ferritin 12/03/22 Immunizations Given and Recorded Vaccine Date Status Refusal Reason SARS-CoV-2 mRNA (tozinamkellyn 12y+) bival 1 08/19/22 Given influenza virus [...] mRNA,LNP-S,PF 30 mcg/0.3mL dose 12Result Comment: Pneumovax [id number] Medications acetaminophen 650 mg oral tablet, extended [...] needed, # 100 g, 0 Refill(s), Pharmacy: [facility] Start Date: 12/03/22 Status: Ordered DULoxetine 60 mg oral delayed release capsule 60 mg = 1 cap, Oral, BID, do not crush or chew, # 180 cap, 0 Refill(s) Start Date: 06/01/22 Stop Date: 11/11/22 Status: Ordered furosemide 20 mg oral tablet 10 mg = 0.5 tab, Oral, Daily, prn SOB,, # 5 tab, 0 Refill(s), Pharmacy: [facility] Start Date: 12/03/22 Status: Ordered furosemide 20 mg oral tablet 10 mg = 0.5 tab, Oral, Daily, take for SOB as needed or weight increase more than 5 pounds in 1 days, # 45 tab, 0 Refill(s), Pharmacy: [facility] ([facility] ) Start Date: 12/03/22 Status: [...] g, 4 Refill(s), Pharmacy: [facility] ([facility] ) Start Date: 11/18/22 Stop Date: 02/11/24 Status: Ordered oxybutynin 15 mg/24 hr oral tablet, extended release 1 tab, Oral, Daily, # 90 tab, 3 Refill(s), Pharmacy: [id number] Start Date: 08/27/22 Status: Ordered spironolactone 25 [...] known physiological condition 7FROM [facility]W: hx of [id number]-iut to fibroids, treated with depot lupron, then [...] LES1, L5 to S1, left Dr. Dubois, [facility] 3FROM ECW: Arthroplasty, second left toe 4FROM ECW: Endometrial biopsy, benign 5FROM ECW: Bilateral TKA 6FROM ECW: Encometrial biopsy, benign 7FROM ECW: Uterine Artery Embolism/ Hysteroscopy 8FROM ECW: HYsteroscopy with partial myomectomy 9FROM ECW: EGD, normal 10FROM ECW: Arthroscopy (Bilateral) 11FROM ECW: Arthroscopy (Bilateral) 12FROM ECW: D+C (numerous) 13FROM ECW: operative hysteroscopy, uterine artery embolization Results Radiology Reports * Exam Date Time Procedure Performing Provider Status 12/03/22 12:45 PM XR Elbow Complete 3+ Views Left Crystal Holloway E; Auth (Verified) Notes: (XR Elbow Complete 3+ Views Left) Reason For Exam: elbow pain heat XR Elbow Complete 3+ Views Left EXAM DESCRIPTION: XR Elbow Complete 3+ Views Left 12/03/2022 INDICATION: ELBOW PAIN HEAT COMPARISON: None IMPRESSION: No acute fracture or dislocation No regional arthritic changes No focal lytic or sclerotic lesion Soft tissue swelling adjacent to the olecranon on the lateral view suspicious for olecranon bursitis or sequela of soft tissue injury. No regional radiopaque soft tissue foreign body. JOB #: [id number] Final Signed by: Sulaiman Bruce MD Signed (Electronic Signature): 12/03/2022 12:57 pm Social History Social History Type Response Tobacco Never tobacco user T obacco Use:. Sex XR Elbow - left GE 3 Views * Sulaiman Bruce MD: VERIFY, VERIFY Event Display: Report EXAM DESCRIPTION: XR Elbow Complete 3+ Views Left 12/03/2022 INDICATION: ELBOW PAIN HEAT COMPARISON: None IMPRESSION: No acute fracture or dislocation No regional arthritic changes No focal lytic or sclerotic lesion Soft tissue swelling adjacent to the olecranon on the lateral view suspicious for olecranon bursitis or sequela of soft tissue injury. No regional radiopaque soft tissue foreign body. JOB #: [id number] Final Signed by: Sulaiman Bruce MD Signed (Electronic Signature): 12/03/2022 12:57 pm Patient Care team information Care Team Personnel Name: Theo Kat DO Position: Physician Member Role: Primary Care Physician Address: Address: [address] [place], [place] [phone] [place] Name: Lubna Jordan APRN Position: Physician Member Role: Nurse Practitioner Address: Address: [address] [place] [address]
--- OUTSIDE RECORDS SUMMARY | 2023-05-25 12:27 | XMS_ITS | Patient Health Record ---
Author Name Unknown [facility] Address [address] [place] [address] Care Team Providers Care [employer] Name Role Phone JEMILLY MIR DO Primary Care Provider Aroldo Li Unavailable [phone] ALLERGIES Allergen (clinical drug ingredient) Drug/Non Drug Allergy documented on EMR Reaction Allergy Type Onset Date Status Adhesives (uncoded) rash and blisters Allergy Active penicillin G benzathine / penicillin G procaine Bicillin C-R itchy Drug Allergy Active cefotaxime Cefotaxime Sodium claforan,itchy /s welling Drug Allergy Active REASON FOR REFERRAL No Information MEDICATIONS Medication SIG (Take, Route, Frequency, Duration) Notes Start Date End Date Status oxyBUTYnin Chloride ER 15 MG 1 tab(s) Orally once a day overactive bladder, Dr. Bhatti Active DULoxetine HCl 60 MG 1 capsule Orally Twice a day Active buPROPion HCl 75 MG 1 tablet Orally Twice a day Not-Taking Spironolactone 25mg 1 tablet orally every day , or as directed 3 Not-Taking Coenzyme Q10 - as directed Orally Not-Taking Simvastatin 10 mg 1 tab(s) orally once a day (at bedtime) for 7 Active Cyclobenzaprine HCl 10 mg 1 tab(s) orall y qhs prn for 90 days takes every night, then sometimes once per day for muscle spasms 8 Active Gabapentin 600 mg 1 tab(s) orally twice a day OA, fibromyalgia Active Lactobacillus Rhamnosus (GG) - as directed Orally Active Lisinopril 10 mg 1 tab(s) orally once a day for 6 Active Methylsulfonylmethane 1000 MG as directed Orally Active Gabapentin 300 MG 1 capsule Orally 2 times daily Active -VOLTAREN TOPICAL 1% 0.4 gram (Pea sized amount) TOPICAL 1-4 times per day for 14 days 0 Active Nystatin 791550 UNIT/GM 1 application to affected area Externally Twice a day Active Lumigan 0.01% 1 gtt each eye once a day (in the evening) glaucoma Active Cyanocobalamin 1000 MCG 1 tablet Orally Once a day vitamin B12 Active Vitamin C 500 mg 1 tab(s) orally once a day for 30 day(s) Active Fish Oil 1000 MG 1 capsule Orally Once a day for 30 day(s) Active Ibuprofen 200 MG 1 tablet Orally as needed Active SOCIAL HISTORY Tobacco Use: Social History Observation Description Date Smoking Status WARNING: Information temporarily unavailable Sex Assigned At : Social History Observation Description Sex Assigned At Unknown SMOKING Question Answer Notes Are you a: nonsmoker Tobacco use other than smoking: Question Answer Notes Additional Findings: Tobacco User No DRUG SCREENING Question Answer Notes Have you used drugs other th an those for medical reasons in the past 12 months? No PROBLEMS Problem Type ICD Code Onset Dates Problem Status W/U Status Risk SNOMED Code Notes Problem Onychocryptosis (L60.0) Active confirmed 933922002 Problem Chronic pain (G89.29) Active confirmed 46980799 Problem Pre-ulcerative calluses (L84) Active confirmed Callosity (942844693) Problem Hyperlipidemia (E78.5) Active confirmed 48287349 Problem Porokeratosis (Q82.8) Active confirmed Porokeratosis (973322172) Problem Right foot pain (M79.671) Active confirmed Pain in right foot (43151066129322 7) Problem Osteoporosis (M81.0) Active confirmed 6 1423009 Problem Morbid obesity (E66.01) Active confirmed 089294549 Problem Toe pain, bilateral (M79.674) Active confirmed Pain in limb (10853130) Problem HTN (hypertension) (I10) Active confirmed 60920316 Problem Cellulitis (L03.90) Active confirmed Ce llulitis (329535907) Resolved Problem Depression (F32.9) 2014 Active confirmed 99869620 Problem Post-menopausal bleeding (N95.0) Active confirmed [place] bleeding (58258027) Problem Kidney stone (N20.0) Active confirmed K idney stone (46995931) Problem Fibromyalgia (M79.7) Active confirmed 2 4738176 Problem Hyperparathyroidism (E21.3) Active confirmed 03557818 Problem Metatarsalgia of right foot (M77.41) Active confirmed Metatars algia of right foot (25854791419231 0) Problem Vitamin B12 deficiency (E53.8) Active confirmed 007514287 Problem Urinary incontinence, urge (N39.41) Active confirmed 72601870 Problem Obstructive sleep apnea on CPAP (G47.33) Active confirmed 11578090 Problem Xerosis of skin (L85.3) Active confirmed Xerosis cutis (86075578) Problem CKD (chronic kidney disease) stage 3, GFR 30-59 ml/min (N18.3) Active confirmed Chronic kidney disease stage 3 (722742757) Problem Onychomycosis of toenail (B35.1) Active confirmed Onychomycosi s caused by dermatophyte (903837091) Problem Intertrigo (L30.4) Active confirmed 587 50043 Problem Lumbar spinal stenosis (M48.06) Active confirmed 74998113 Problem History of Lyme disease (Z86.19) Active confirmed 484604445 Problem Primary osteoarthritis of right hip (M16.11) Active confirmed 405909776 Problem Tear of right rotator cuff, unspecified tear extent (M75.101) Active confirmed 952708755 Problem Lymphedema of both lower extremities (I89.0) Active confirmed Lymphedema (405839451) Problem Severe low back pain (M54.5) Active confirmed 496297357 Problem Foot deformity, 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) Active confirmed Problem Leg ulcer, left, limited to breakdown of skin (L97.921) Active confirmed Clean, noninfected Problem Other osteoarthritis involving multiple joints (M15.8) Active confirmed 935399097 PLAN OF TREATMENT No Information Insurance Providers Payer Name Payer Address Payer Phone Subscriber Number Group Number Insured Name Patient Relationship to Insured Coverage Start Date Coverage End Date MEDICARE [address] [place], [place] [id number] HERBERTH RUDOLPH Self - patient is the insured S-SE[employer] Y OTHER [address] [place] [id number] HERBERTH RUDOLPH Self - patient is the insured [place] [address] HERBERTH RUDOLPH Self - patient is the insured MEDICAL (GENERAL) HISTORY Medical History History ICD Code CONTROLLED SUBSTANCE AGREEME NT SIGNED WITH [facility], ON 06/26/2018 FOR OA Morbid obesity Fibromyalgia Lymphedema Vitamin D deficiency with secondary hypo parathyroidism h/o recurrent Lyme Disease, dx in 1992 s /p tx w/ multiple abx protocols Chronic Diarrhea B12 deficiency History of Right and Left rib Fx Right foot metarsal Fx 10/21. history of Irene-metorraghia- -- due to fibroids, treated with Depot Lupron, then myomectomy Osteoarthritis/ DJD both knees: status p ost bilateral knee replacements 2006 L anterior chest wall and L trapezius mu scle pain R first carpometacarpal joint arthritis ? diverticulitis exercised-induced asthma Holter monitor June 2003: normal Dobutamine stress echo 2002: suboptimal due to poor resolution, however, essentially negative, no apparent inducible wall motion abnormalities noted US 05/30: fibroids, endometrial polyp increased intraocular pressure Hyperlipidemia 244/43, LDL 163 11/30 simv astatin begun Sleep Study 12/30: positive m od-severe sleep apnea, CPAP initiated 02/14/11 ; pressure: [address] RENEE 06/02 DEXA 01/2014:osteopenia hip/a rm, normal spine: t+2.0 spine, t-1.3 fem neck t-0.6 hip t-1.8 forearm IMPROVED from 2003 right hip Osteoarthritis 12/04/2015-Gisel irizarry ortho CT Lumbar spine : D egenerative disc disease at all levels, most pronounced at L4 to 5 and L5 to S1. Bilateral hypertrophic facet arthritic changes at all levels. Moderate spinal canal stenosis at L3 to 4 and L4 to 5. Right exit foramen encroachment at L3 to 4 and left exit foramen encroachment at L4 to 5. Bilateral exit foramen encroachment at L5 to S1 LESI : 06/2016 Dr Sherly Simeon ortho MRI LS Spine 12/23/16: Moderat e degenerative central canal stenosis from L3 to 4 to L5 to S1. Moderate right neural foraminal narrowing at L4 to 5. Moderate bilateral neural foraminal narrowing L5 to S1. Multilevel degenerative disc disease. Grade 1 L3 anterolisthesis in the setting of facet arthropathy. Surgical History Surgery Date(Month/Year) D&C 1977, 07/22 Hysteroscopy with partial myomectomy 03/23 004 Artho knee surgery 09/1987 EGD: normal Colonoscopy: normal 02/2006 left knee total arthroplasty 03/2007 endometrial biopsy: [facility] [place]: jose dsouza weakly proliferative endometrium, negative for hyperplasia or malignancy 05/2005 right total knee 05/28 endometrial biopsy: [facility] [place]: benign 11/21/07 operative hysteroscopy, uterine artery e mbolization by IR 02/2010 Arthroplasty second left toe 04/10/15 LESI, L5 to S1, left, Dr. Dubois, [facility]. 07/01/16 colonoscopy- Sigmoid diverticulosis (rep eat 10 years) 07/2017 Hospitalization History Reason Date(Month/Year) see above
--- NOTE | 2023-05-25 12:48 | ED.GENADUL_ITS ---
Discharge Plan Disposition Patient Disposition: Home Condition: Stable Discharge Details Clinical Impression: Laceration of leg not thigh, right, Paronychia of finger of right hand Primary Care Provider: Theo Morley ED Provider: Hannah Sidhu Home Meds and New Rx's Prescriptions: New cephalexin 500 mg tablet 500 mg PO BID 10 Days Qty: 20 0RF Rx Instructions: Take one tablet twice daily by mouth as directed Continued cyclobenzaprine 10 mg Tablet 10 mg PO TID PRN oxybutynin chloride 15 mg Tablet Extended Release 24hr 15 mg PO DAILY gabapentin 600 mg Tablet 600 mg PO TID spironolactone 25 mg Tablet 25 mg PO DAILY ascorbic acid (vitamin C) [Vitamin C] 500 mg Tablet 500 mg PO DAILY duloxetine 60 mg Capsule,Delayed Release(Dr/Ec) 60 mg PO DAILY latanoprost 0.005 % Drops 1 drp ophthalmic (eye) HS tramadol 50 mg tablet 50 mg PO TID PRN Patient Comments: TAKE 1 TABLET BY MOUTH THREE TIMES DAILY NEEDED FOR PAIN losartan 25 mg tablet 25 mg PO DAILY furosemide 20 mg tablet 20 mg PO DAILY PRN nystatin 100,000 unit/gram powder TOPICAL Discharge Instructions Instructions: Laceration (ED), Paronychia (ED) Additional Instructions: Have sutures removed in 7-10 days. There is a chance that the flap of skin will not re-attach. Take the Antibiotic as directed. Soak your finger in warm soapy water once daily. Please take Tylenol or Ibuprofen with food every 4-6 hours as needed for pain and swelling. Follow up with PCP in 7-10 days Return to the ED sooner for any signs of infection, red streaks, or concerns. Referrals: Theo Morley [Primary Care Provider] - 3 days Medical Decision Making 73 year old female presents to the ER with chief complaint of right leg laceration which occured prior to arrival while getting out of the car. The car door hit the outside of her lag and patient sustained a approximately 6-7 cm laceration to her lateral right leg. She also has a infected right little finger which patient has been treated for with Cephalexin x 7 days which has returned. Patient has a past medical history dizziness, osteoporosis, fibromyalgia. Obesity. Topical Let ordered, wound care, and will attempt I& D of finger for Paronychia versus Felon. Laceration infiltrated with 1% lidocaine and epinephrine. Patient tolerated well. Laceration cleaned with NS and chlorahexadine. Skin flap re-attached with 6 4.0 ethilon sutures, Reinforced with 5 steri strips. Nonadherant dressing and coban applied. See procedure notes I&D of finger performed, small amount of purulent drainage expressed. Instructed on home care and given cephalexin. Discussed strict return instructions and home care. Instructed to have sutures removed in 7 to 10 days. This text was generated using [employer] system, please disregard any oddities of phrase or misspellings. HPI General Mode of arrival: ambulatory . Date/Time Provider Initiated Documentation: 05/25/23 12:29 . Limitations to Documentation: no limitations . Information obtained by: patient, RN notes reviewed and old records reviewed . HPI Narrative: 73 year old female presents to the ER with chief complaint of right leg laceration which occured prior to arrival while getting out of the car. The car door hit the outside of her lag and patient sustained a approximately 6-7 cm laceration to her lateral right leg. She also has a infected right little finger which patient has been treated for with Cephalexin x 7 days which has returned. Patient has a past medical history dizziness, osteoporosis, fibromyalgia. Obesity. Related Data Home Medications Medication Instructions Recorded Confirmed ascorbic acid (vitamin C) 500 mg 500 mg PO DAILY 01/28/22 05/25/23 tablet (Vitamin C) cyclobenzaprine 10 mg tablet 10 mg PO TID PRN 01/28/22 05/25/23 duloxetine 60 mg capsule,delayed 60 mg PO DAILY 01/28/22 05/25/23 release gabapentin 600 mg tablet 600 mg PO TID 01/28/22 05/25/23 oxybutynin chloride 15 mg 15 mg PO DAILY 01/28/22 05/25/23 tablet,extended release 24 hr spironolactone 25 mg tablet 25 mg PO DAILY 01/28/22 05/25/23 latanoprost 0.005 % eye drops 1 drp ophthalmic (eye) HS 01/29/22 05/25/23 cephalexin 500 mg tablet 500 mg PO BID infection 10 days 05/25/23 #20 tabs furosemide 20 mg tablet 20 mg PO DAILY PRN 05/25/23 05/25/23 losartan 25 mg tablet 25 mg PO DAILY 05/25/23 05/25/23 nystatin 100,000 unit/gram topical topical 05/25/23 powder tramadol 50 mg tablet 50 mg PO TID PRN 05/25/23 05/25/23 Previous Rx's Medication Instructions Recorded cephalexin 500 mg tablet 500 mg PO BID infection 10 days 05/25/23 #20 tabs Allergies Allergy/AdvReac Type Severity Reaction Status Date / Time adhesive Allergy Severe Skin Rash Unverified 05/25/23 12:29 cefotaxime [From Claforan] Allergy Severe Tongue Unverified 05/25/23 12:29 swelling penicillin G Allergy Severe tongue Unverified 05/25/23 12:29 [From Bicillin L-A] swelling General Stated Complaint: Laceration TERESITA: 4 Review of Systems Integumentary/Breasts Skin/Breast: Reports as per HPI, Reports erythema (Right little finger) and Reports wounds (Right lateral leg) PFSH All Active Problems (Updated 05/25/23 @ 13:58 by Hannah Sidhu NP) Laceration of leg not thigh, right (Acute) Paronychia of finger of right hand (Acute) Primary open angle glaucoma (POAG) of left eye, mild stage (Acute) Medical History Age-related osteoporosis without current pathological fracture Central stenosis of spinal canal Chronic diarrhea CKD (chronic kidney disease), stage III pt. denies Essential (primary) hypertension Exercise-induced asthma pt. denies this Fibromyalgia HLD (hyperlipidemia) Hx of menorrhagia due to fibroids, treated with lupron depot, then myomectomy Hyperparathyroidism Hyperparathyroidism due to vitamin D deficiency Kidney stone pr. denies Low back pain Lyme disease recurrent Lymphedema MDD (major depressive disorder), single episode Metatarsalgia, right foot Morbid (severe) obesity due to excess calories Non-pressure chronic ulcer of buttock limited to breakdown of skin pt. denies this Normal esophagogastroduodenoscopy (EGD) Osteoarthritis Other chronic pain Other insomnia not due to a substance or known physiological condition Spinal stenosis, lumbar region without neurogenic claudication Unilateral primary osteoarthritis, right hip Urge incontinence Vitamin B12 deficiency pt. denies Surgical History H/O arthroplasty second left toe H/O arthroscopy bilateral History of tonsillectomy and adenoidectomy states tonsills only removed History of total bilateral knee replacement Hx of colonoscopy Status post embolization of uterine artery Status post hysteroscopic myomectomy Social History Smoking/Tobacco Use Status: Never Smoking risk assessment performed?: Yes Alcohol Intake: never Drug use: Never Substance use type: does not use Do you feel safe at home: Yes Additional Social history: lives alone Exam Extrem Hand/finger images: 1. Erythema, swelling and mild fluctuance Felon versus Paronychia Right lower extremity: lower leg Details: laceration distal lower leg lateral Details: linear, irregular, flap and involving subcutaneous tissue Ankle/foot/toe images: 1. V shaped laceration to right lateral leg, bleeding controlled. Distal CMS intact. Legs are very edematous and weeping fluid. Course Vital Signs Vital signs: Vital Signs Temperature 36.9 C 05/25/23 12:21 Pulse 83 05/25/23 12:21 Respiratory Rate 22 05/25/23 12:21 Blood Pressure 162/94 H 05/25/23 12:21 Pulse Oximetry 98 05/25/23 12:21 Temperature 36.9 C 05/25/23 12:21 Temperature Source Oral 05/25/23 12:21 Pulse 83 05/25/23 12:21 Respiratory Rate 22 05/25/23 12:21 Respiratory Effort Normal, Non-Labored 05/25/23 12:33 Blood Pressure 162/94 H 05/25/23 12:21 Blood Pressure Position Supine 05/25/23 12:21 Pulse Oximetry 98 05/25/23 12:21 Oxygen Delivery Method Room Air 05/25/23 12:21 Oxygen Flow Rate 0 05/25/23 12:21 Pain Level 9 05/25/23 12:21 Procedures Abscess I/D Site: Hand (5th digit) Side (if applicable): Right Local Anesthetic: Other Anesthetic (Topical Pain Ease) Technique: Incised with #11 Blade Amount of fluid expressed (mL): 1 Irrigation: No Packing used?: None Complications: Pain Laceration Laceration 1: Site: lower extremity (Right lower leg laceration) Side (If applicable): right Size (cm): 6 Description: flap Depth: simple, single layer Local Anesthetic: Lidocaine 1% and with Epi Amount of anesthesia used (mL): 3 Pre-repair: wound explored, irrigated extensively and deep structures intact Skin layer closed with: nylon Size (cm): 4-0 Number of sutures: 6 Technique: simple, interrupted and other (Steri strips used to re-inforce laceration)
[2023-05-25] MEDS: Lidocaine/Epinephri/Tetracaine Topical Gel 3 ML TP (12:53)
[2023-05-25] MEDS: Cephalexin 500 MG CAP PO (13:20)
[2023-05-25 14:02] VITALS: BP 137/61; PULSE 69; RESP 16; O2SAT 98
== END 2023-05-25 14:14 | disposition home or self-care (01) ==
PROVIDERS: Emergency Provider Registered Nurse Emergency; PCP Family Medicine
DX: S81.811A Laceration without foreign body, right lower leg, initial encounter (principal); L03.011 Cellulitis of right finger
CPT/HCPCS: 10060; 12002